=== PATIENT | female | born 1940 | race Caucasian/White ===

== ENCOUNTER 2017-06-12 06:01 | Inpatient (IN) | payer OTHER ==
--- NOTE | 2017-05-20 17:02 | History and Physical ---
History & Physical Date May 20, 2017. Chief Complaint left knee pain History of Present Illness Terri is a pleasant 77-year-old female who presents for preoperative evaluation prior to a Left knee replacement. Patient states that they have been having pain in this knee for many years now, which has gradually worsened, it has now gotten to the point it is affecting her daily activities including walking, standing, going up and down steps. Patient has tried and failed conservative measures including ambulating with a cane and PO NSAIDs with no relief. At this point in time, patient has failed conservative measures and would like to proceed with a left knee replacement. Past Medical/Surgical History Medical Problems: (1) Coronary artery disease (2) Salmonella Surgical Problems: (1) Stented coronary artery Allergies Coded Allergies: No Known Allergies (Unverified , 04/01/14) Home Medications Scheduled Aspirin (Aspir-Low), 81 MG PO QAM Atorvastatin (Atorvastatin Calcium), 40 MG PO DAILY Calcium Carbonate-Vitamin D (Calcium + D), 1 TAB PO DAILY Cyanocobalamin (Vitamin B12 500MCG), 500 MCG PO DAILY Folic Acid (Folvite), 1 MG PO DAILY Gabapentin (Neurontin), 600 MG PO HS Isosorbide Mononitrate (Isosorbide Mononitrate ER), 30 MG PO QAM Levothyroxine Sodium (Bulk) (L-Thyroxine Sodium), 75 MG PO DAILY Losartan Potassium (Cozaar), 50 MG PO DAILY Nitroglycerin (Nitrostat), 0.4 MG UT PRN Pantoprazole (Protonix), 40 MG PO DAILY Propranolol La (Inderal La), 60 MG PO QAM Venlafaxine Hcl (Venlafaxine Extended Rel), 75 MG PO DAILY [Ferrous Gluconate], 10 GM PO DAILY Physical Examination Skin: warm/dry, no rash Eyes: normal inspection, EOMI, sclerae normal ENT: normal ENT inspection, pharynx normal Head: normocephalic, atraumatic Neck: supple, no adenopathy, trachea midline Respiratory/Chest: lungs clear, normal breath sounds, no respiratory distress Cardiovascular: regular rate, rhythm, no edema, no murmur Addiitonal Comments: Left Knee Exam Physical Exam Exam Findings Details Knee ROM L * Active ROM - Flexion: 100 degrees, Extension: 5 degrees, Factors: pain. Passive ROM - Factors: pain. Knee ROM R * Active ROM - Flexion: 115 degrees, Extension: 0 degrees, Factors: normal, Description: active pain free range of motion. Passive ROM - Factors: normal, Description: passive pain free range of motion. Strength LE Normal Strength Description - Normal lower extremity: Bilateral. Knee * Inspection - Gait: normal. Alignment - Right: varus, Clinical, Left: varus. Ecchymosis - Right: none, Left: none. Effusion - Right: negative, Left: negative. Skin - Left: surgical scars. Swelling - Right: none, Left: mild. Flexibility - Right: normal, Left: normal. Maximum tenderness - Right: diffuse, Left: non-tender. Patella exam - Crepitation - Right: negative, Left: negative. Patella position - Right: neutral, Left: neutral. Tilt - Right: normal, Left: normal. Knee Normal Inspection - Atrophy - Right: Absent, Left: Absent. Skin - Right: Normal. Patella exam - Apprehension - Right: Negative, Left: Negative. Valgus stress - Right: Negative, Left: Negative. Varus stress - Right: Negative, Left: Negative. Extensor lag - Right: Normal, Left: Normal. Neurovascular LE Normal Neurovascular examination including reflexes, sensation , and pulses is within normal limits. Left Knee X-Rays: Xrays reviewed of the left knee showing findings consistent with degenerative joint disease including joint space narrowing, subchondral sclerosis and peripheral osteophyte formation. no acute bony pathology, overall varus alignment. Impression: degenerative joint disease of the left knee with no acute bony pathology noted. Diagnosis Left Knee DJD -Further care discussed with patient and at this point in time has failed conservative measures and would like to proceed with a left total knee replacement. Plan on discharge will be home with home health physical therapy. DVT prophalaxis with TEDs, SCDs and will also place on aspirin 81 mg p.o. b.i.d. for a month postop. Patient will have follow up appointment in our office two weeks post op for staple/suture removal and re-evaluation. Patient otherwise has no other questions or concerns.
[2017-05-21 14:39] VITALS: BMI 24.0
--- NOTE | 2017-05-21 15:13 | PAT Medication Instructions ---
Service Date May 21, 2017. Current Home Medication List Acetaminophen (Tylenol), 1,000 MG PO PRN Aspirin (Aspirin Ec), 81 MG PO HS Atorvastatin (Lipitor), 40 MG PO QPM Bismuth Subsalicylate (Kaopectate Extra Strength), 15 ML PO PRN Gabapentin (Neurontin), 600 MG PO HS Levothyroxine Sodium (Levothyroxine Sodium), 1 TAB PO QAM Nitrofurantoin Macrocrystals (Macrodantin), 100 MG PO BID Nitroglycerin (Nitrostat), 0.4 MG UT PRN Pantoprazole (Protonix), 40 MG PO BID Venlafaxine Hcl (Venlafaxine Extended Rel), 75 MG PO QAM Medication Instructions For Your Scheduled Surgery - Continue as directed: Nitroglycerin (Nitrostat), 0.4 MG UT PRN - Hold the following medications the morning of surgery: Bismuth Subsalicylate (Kaopectate Extra Strength), 15 ML PO PRN - Take the following medications the morning of surgery with a sip of water OTHERWISE NOTHING TO EAT OR DRINK AFTER MIDNIGHT: Acetaminophen (Tylenol), 1,000 MG PO PRN Pantoprazole (Protonix), 40 MG PO BID Venlafaxine Hcl (Venlafaxine Extended Rel), 75 MG PO QAM Levothyroxine Sodium (Levothyroxine Sodium), 1 TAB PO QAM Nitrofurantoin Macrocrystals (Macrodantin), 100 MG PO BID - Take the following medications as scheduled the night before surgery: Aspirin (Aspirin Ec), 81 MG PO HS Atorvastatin (Lipitor), 40 MG PO QPM Gabapentin (Neurontin), 600 MG PO HS Acetaminophen (Tylenol), 1,000 MG PO PRN Pantoprazole (Protonix), 40 MG PO BID Nitrofurantoin Macrocrystals (Macrodantin), 100 MG PO BID If you have any questions please call us at [phone] or [phone] or [phone]
--- NOTE | 2017-05-21 15:53 | DIAGNOSTIC IMAGING REPORT ---
TWO VIEW CHEST CLINICAL HISTORY: Preoperative examination. FINDINGS: PA and lateral chest radiographs are obtained No prior studies are available for comparison at the time of dictation. The cardiomediastinal silhouette is unremarkable. A coronary artery stent is noted. There is a large hiatal hernia. The lungs and pleural spaces are clear. There is no pneumothorax. The skeletal structures are osteopenic. The bony thorax appears intact. IMPRESSION: 1. No active disease in the chest. 2. Large hiatal hernia. Electronically signed by: Andrez Niño M.D. 05/21/2017 3:52 PM Dictated Date/Time: 05/21/2017 3:51 PM
[2017-05-21 15:54] LABS: BASO % 0.5 %; BASO ABS # 0.02 K/uL (0-0.2); COMPLETE YES; EOS % 1.1 %; HEMATOCRIT 42.2 % (37-47); IG% 0.3 %; LYMPH % 31.3 %; LYMPH ABS # 1.16 K/uL (1.2-3.4); MEAN CELL VOLUME 98.1 fL (80-100); MEAN CORPUSCULAR HEMOGLOBIN 31.6 pg (25-34); MEAN CORPUSCULAR HGB CONC 32.2 g/dl (32-36); MEAN PLATELET VOLUME 8.4 fL (7.4-10.4); MONO % 6.5 %; NEUT % 60.3 %; PLATELET COUNT 144 K/uL (130-400); WHITE BLOOD COUNT 3.71 K/uL (4.8-10.8)
[2017-05-21 15:57] LABS: URINE APPEARANCE CLEAR (CLEAR); URINE BILIRUBIN NEG (NEG); URINE COLOR DK YELLOW; URINE EPITHELIAL CELL AUTO 20-30 /lpf (0-5); URINE NITRITE NEG (NEG); URINE SPECIFIC GRAVITY 1.024 (1.000-1.030); UROBILINOGEN NEG (NEG); ZZUR CULT IF INDIC CLEAN CATCH NO
[2017-05-21 15:58] LABS: MANUAL MICROSCOPIC REQUIRED? NO; REVIEW REQ? NO
[2017-05-21 16:05] LABS: BUN/CREATININE RATIO 17.9 (10-20); CALCIUM 8.7 mg/dl (8.5-10.1); CREATININE 0.72 mg/dl (0.60-1.20); PROTHROMBIN TIME (PATIENT) 10.5 SECONDS (9.0-12.0)
[2017-05-22 06:15] LABS: ESTIMATED AVERAGE GLUCOSE 111 mg/dl; HA1C FLAG Normal (Normal)
[~2017-06-12] VITALS: Ht 162.6 cm; Wt 64.9 kg
[2017-06-12] VITALS (10 sets, daily range): BP systolic 80–143; BP diastolic 44–80; PULSE 61–82; TEMP 36.4–36.7; O2SAT 94–99; Ht 162.6 cm; Wt 64.9 kg
[~2017-06-12 06:01] MED LIST: ACET-1256 PO; ACETAMINOPHEN 500 MG TAB PO SCH; ASPI81TA28 PO; ATOR-24 PO; CEFAZOLIN 2000 MG/60 ML D5W 60 ML IV SCH; CeleBREX 200 MG CAP PO SCH; DEXAMETHASONE 4 MG TAB PO SCH; FAMOTIDINE 20 MG TAB PO SCH; GABA600T PO; GABAPENTIN 300 MG CAP PO SCH; LACTATED RINGER'S 1000ML 1,000 ML IV SCH; LACTATED RINGER'S 1000ML 500 ML IV ONE; LACTATED RINGER'S 1000ML IV SCH; LEVO50TA6 PO; METOCLOPRAMIDE HCL 10 MG TAB PO SCH; NITR0.4S UT; NITR1CAP32 PO; PANT1TAB48 PO; ROPIVACAINE 5MG/ML 30 ML 150 MG, BUPIVACAINE/EPINEPHR 0.5% MPF 30 ML, KETOROLAC TROMETH... INFIL SCH; VENL75CA73 PO; [UNRECOGNIZED DRUG - CODE] PO
[2017-06-12] MEDS ORDERED: BUPIVACAINE 0.5 % 5 MG/1 ML PF 10ML VIAL ONE (06:29)
[2017-06-12] MEDS ORDERED: FENTANYL CITRATE INJ 50 MCG/1 ML 2 ML VIAL ONE (06:44)
[2017-06-12] MEDS ORDERED: MIDAZOLAM HCL 1 MG/ML 2ML VIAL ONE (06:44)
[2017-06-12] MEDS ORDERED: ORTHO JOINT ANESTHETIC ONE (06:54)
--- NOTE | 2017-06-12 06:54 | History & Physical Bridge Note ---
H&P Re-Evaluation Bridge Note: I have examined the patient, reviewed the History & Physical and in the interval since the performance of the History & Physical I have noted the following changes of clinical significance: No changes noted
[2017-06-12] MEDS ORDERED: BACITRACIN 50000 UNIT VIAL ONE (06:55)
[2017-06-12] MEDS ORDERED: POVIDONE-IODINE OP SOLN 30 ML BTL ONE (06:55)
[2017-06-12] MEDS ORDERED: FENTANYL CITRATE INJ 50 MCG/1 ML 2 ML VIAL IV PRN (07:15)
[2017-06-12] MEDS ORDERED: EpHEDrine SULFATE INJ 50 MG/ML AMP IV PRN (07:15)
[2017-06-12] MEDS ORDERED: ONDANSETRON INJ 2 MG/ML 2 ML VIAL IV PRN ×2 (07:15→10:00)
[2017-06-12] MEDS ORDERED: ATROPINE SULFATE 0.1 MG/ML 5ML SYR IV PRN (07:15)
[2017-06-12] MEDS ORDERED: PROPOFOL IV EMULSION 10 MG/ML 20 ML VIAL IV ONE (08:46)
[2017-06-12] MEDS ORDERED: LIDOCAINE HCL 2% 2 ML VIAL (20MG/ML) ONE (08:46)
--- NOTE | 2017-06-12 09:23 | [facility] Operative Report ---
Operative Report Operative Date Jun 12, 2017. Pre-Operative Diagnosis Left knee degenerative joint disease Post-Operative Diagnosis Left knee degenerative joint disease Procedure(s) Performed Left total knee arthroplasty using [employer] journey to patient-matched total knee arthroplasty size 3 femur 3 tibia 12 poly-[address] Garner Inside Polisher Surgeon(s) Hammad Workman PA-C Estimated Blood Loss 5cc Findings Severe end-stage DJD left knee with Keith cyst Specimens A: Left knee bone and tissue Complication(s) None Disposition Recovery Room / PACU Indications Severe end-stage TriCor Meldrum joint disease varus alignment ligament instability popliteal cyst and for total knee arthroplasty excision of popliteal cyst correction of malalignment Description of Procedure After proper prepping and draping of the left lower extremity anterior midline incision was made over the region of the extensor extensor mechanism after meticulous hemostasis was obtained and maintained in subcutaneous tissues a medial parapatellar incision was made The patella was subluxed lateralward the medial lateral gutter were cleaned from any hypertrophic synovitis and scar tissue of the distal femoral block was placed and the distal femoral osteotomy cut was made subsequently the chamfers anterior and posterior osteotomy cuts were made utilizing the 4-in-1 block the tibia was subsequently subluxed anteriorward medial and ateral meniscal remnants were excised in their entirety remnants of the anterior and posterior cruciate ligaments were excised in their entirety excellent exposure of the proximal tibia was obtained the tibial osteotomy guide was placed on the proximal tibial osteotomy cut was made once again the knee was irrigated with copious amounts of sterile saline solution the patella was subsequently everted lateralward thickened scar tissue around the patella was removed the patella was subsequently cut utilizing a freehand technique and was drilled prepared for final preparation and placement of patella socially flexion-extension gaps were checked and the equal and symmetric trials were placed to the appropriate femoral and tibial trials with poly-spacer being placed for equal flexion and extension gaps and full range of motion including extension to 0 and flexion to 140 the trial components after having been taken to recovery range of motion was subsequently removed meticulous hemostasis was obtained and maintained subsequently a knee block injection of joint cocktail including ropivacaine 0.5% 150 mg. Bupivacaine 0.5 % epinephrine 1-200,030 mL's toradol 30 mg dexamethasone 4 mg ketamine 10 mg clonidine 100 micrograms normal saline solution 30 mg was infiltrated into the soft tissues of the posterior knee medial lateral gutters and periosteal synovium special attention was paid to protect neurovascular structures at all times subsequently trial components having been removed the knee was irrigated with sterile saline solution. debris was removed the proximal tibia was subsequently prepared and was made ready for the placement of the tibial component tibial component was also cemented and tamped into position the femoral component was subsequently placed and cemented in the position the patellar component was subsequently cemented in position because hemostasis once again obtained and maintained wound having been thoroughly irrigated with debridement and debridement lavage was performed as well as a medial parapatellar incision closed with #1 Vicryl in interrupted fashion subcutaneous was closed with #2 Vicryl skin was closed with skin clips. PA-C was necessary for prepping and drapping as well as wound closure of deep fascia Sub cutaneous tissue and skin and was necessary for the case. A sterile compressive dressing was placed patient was taken to recovery in stable condition of report dictated by Pascual I attest to the content of the Intraoperative Record and any orders documented therein. Any exceptions are noted below. I attest to the content of the Intraoperative Record and any orders documented therein. Any exceptions are noted below.
[2017-06-12] MEDS ORDERED: ALUMINUM/MAGNESIUM/SIMETH (MAALOX MAX) 30 ML UDC PO PRN (10:00)
[2017-06-12] MEDS ORDERED: MoRPHine SULFATE 4 MG/ML 1 ML CARP\\VIAL IV PRN (10:00)
[2017-06-12] MEDS ORDERED: BISACODYL 10 MG SUPP PR PRN (10:00)
[2017-06-12] MEDS ORDERED: NITROGLYCERIN 0.4 MG SL PER TAB CHARGE UT SCH (10:00)
[2017-06-12] MEDS ORDERED: MAGNESIUM HYDROXIDE SUSP 30 ML UDC PO PRN (10:00)
[2017-06-12] MEDS ORDERED: MoRPHine SULFATE 2 MG/ML CARP IV PRN (10:00)
--- NOTE | 2017-06-12 10:20 | Anesthesiology Progress Note ---
Anesthesia Post Op Note Date & Time Jun 12, 2017 at 10:20 Vital Signs Pain Intensity: 0 Vital Signs Past 12 Hours Date Time Temp Pulse Resp B/P (MAP) Pulse Ox O2 Delivery O2 Flow Rate FiO2 06/12/17 10:10 64 16 119/68 99 Nasal Cannula 2 06/12/17 10:00 36.4 63 18 128/60 95 Nasal Cannula 2 06/12/17 09:56 36.4 70 18 133/67 96 Room Air 06/12/17 06:37 36.4 82 20 143/68 97 Room Air Notes Mental Status: alert / awake / arousable, participated in evaluation Pt Amnestic to Procedure: Yes Nausea / Vomiting: adequately controlled Pain: adequately controlled Airway Patency, RR, SpO2: stable & adequate BP & HR: stable & adequate Hydration State: stable & adequate Neuraxial Anesthesia: was administered, sensory block is resolving Anesthetic Complications: no major complications apparent
--- NOTE | 2017-06-12 10:49 | DIAGNOSTIC IMAGING REPORT ---
LEFT KNEE 1 OR 2 VIEWS ROUTINE HISTORY: 77 years Female status post left knee arthroplasty. Degenerative joint disease. COMPARISON: None available TECHNIQUE: Portable AP and crosstable lateral views of the left knee FINDINGS: There has been interval total knee arthroplasty with patellar resurfacing. Alignment is satisfactory without evidence of periprosthetic fracture. Midline skin henry are seen with expected large degree of postsurgical swelling and deep tissue air about the knee. IMPRESSION: Status post total left knee arthroplasty and patellar resurfacing with satisfactory alignment. The above report was generated using voice recognition software. It may contain grammatical, syntax or spelling errors. Electronically signed by: Venkata Orellana M.D. 06/12/2017 10:47 AM Dictated Date/Time: 06/12/2017 10:46 AM
[2017-06-12] MEDS ORDERED: D5W AND 1/2NSS + 20MEQ KCL 1,000 ML IV SCH (12:00)
[2017-06-12] MEDS: ACETAMINOPHEN 500 MG TAB PO SCH ×2 (13:54→22:20)
[2017-06-12] MEDS: CEFAZOLIN IV 1,000 MG in DEXTROSE 5% 50ML 50 ML IV SCH ×2 (16:18→23:46)
[2017-06-12] MEDS: FERROUS GLUCONATE 324 MG TAB PO SCH (18:53)
[2017-06-12] MEDS: TRAMADOL HCL 50 MG TAB PO PRN ×2 (18:54→23:47)
[2017-06-12] MEDS ORDERED: NURSING VERBAL MED ORDER ONE (19:45)
[2017-06-12] MEDS ORDERED: SODIUM CHLORIDE 0.9% 250ML 250 ML IV ONE (20:00)
[2017-06-12 20:26] LABS: COMPLETE YES; HEMATOCRIT 32.4 % (37-47); IG% 0.3 %; LYMPH ABS # 0.28 K/uL (1.2-3.4); MEAN CELL VOLUME 98.2 fL (80-100); MEAN CORPUSCULAR HEMOGLOBIN 32.1 pg (25-34); MEAN CORPUSCULAR HGB CONC 32.7 g/dl (32-36); MEAN PLATELET VOLUME 8.4 fL (7.4-10.4); MONO % 3.3 %; NEUT % 92.4 %; PLATELET COUNT 120 K/uL (130-400); WHITE BLOOD COUNT 7.07 K/uL (4.8-10.8)
[2017-06-12] MEDS: OXYCODONE HCL IR 5 MG TAB (IMMEDIATE RELEASE) PO PRN (20:26)
[2017-06-12] MEDS: GABAPENTIN 600 MG TAB PO SCH (20:30)
[2017-06-12] MEDS: ATORVASTATIN 40 MG TAB PO SCH (20:31)
[2017-06-12] MEDS: PANTOprazole SOD 40 MG TAB PO SCH (20:32)
[2017-06-12] MEDS ORDERED: ASPIRIN 81 MG ECTAB PO SCH (21:00)
[2017-06-12] MEDS ORDERED: DOCUSATE SODIUM 100 MG CAP PO SCH (21:00)
[2017-06-12] MEDS ORDERED: SENNA 8.6 MG TAB PO SCH (21:00)
--- NOTE | 2017-06-12 21:06 | Medical Consult ---
Consultation Date of Consultation: Jun 12, 2017. Attending Physician: Willis Garner D.O. Reason for Consultation: Patient seen at request of Dr. Cabrera for evaluation of hypotension. Patient PCP is Dr. Rojas. History of Present Illness Patient underwent left knee surgery for OA this morning. Some postop left knee discomfort. No chest pain no shortness of breath. Appetite okay. Around 7 PM, SBP noted to be 80s. Patient given IVF bolus. SBP currently 100s. Past Medical/Surgical History CAD status post stenting Hyperlipidemia Autoimmune hemolytic anemia GERD Hypothyroidism Restless leg syndrome Past tobacco abuse Hysterectomy Cholecystectomy Left knee surgery Social History Smoking Status: Former Smoker Alcohol Use: none Marital Status: Housing Status: lives with family Occupation Status: other (businesswoman) Allergies Coded Allergies: Adhesives (Unverified Allergy, Unknown, SOME TAPE RASH PAPER [place], 06/12/17) Codeine (Unverified Allergy, Unknown, UNKNOWN, 06/12/17) Home Medications Aspirin 81 mg at bedtime Tylenol when necessary Lipitor Bismuth when necessary Neurontin Levothyroxine Nitroglycerin when necessary Protonix Effexor Current Inpatient Medications Current Inpatient Medications Medications (Trade) Dose Ordered Sig/Janet Route Start Time Stop Time Status Last Admin Dose Admin Lactated Ringer's 1,000 ml @ 15 mls/hr Q24H IV 06/12/17 06:00 06/13/17 05:59 06/12/17 07:14 15 MLS/HR Lactated Ringer's 1,000 ml @ 60 mls/hr [id number] IV 06/12/17 06:00 06/12/17 22:39 Atorvastatin Calcium (Lipitor Tab) 40 mg QPM PO 06/12/17 21:00 07/12/17 20:59 06/12/17 20:31 40 MG Gabapentin (Neurontin Tab) 600 mg HS PO 06/12/17 21:00 07/12/17 20:59 06/12/17 20:30 600 MG Levothyroxine Sodium (Synthroid Tab) 50 mcg DAILYBB PO 06/13/17 06:00 07/13/17 05:59 Nitroglycerin (Nitrostat Tab) 0.4 mg PRN UT 06/12/17 10:00 07/12/17 09:59 Pantoprazole Sodium (Protonix Tab) 40 mg BID PO 06/12/17 21:00 8/18/17 20:59 06/12/17 20:32 40 MG Venlafaxine HCl (effeXOR EXTENDED REL CAP) 75 mg QAM PO 06/13/17 09:00 07/13/17 08:59 Potassium Chloride/Dextrose/ Sod Cl 1,000 ml @ 125 mls/hr Q8H IV 06/12/17 12:00 06/13/17 11:59 06/12/17 12:36 100 MLS/HR Cefazolin Sodium 1000 mg/Dextrose 55 ml @ 100 mls/hr Q8H IV 06/12/17 16:00 06/13/17 00:32 06/12/17 16:18 100 MLS/HR Celecoxib (CeleBREX CAP) 200 mg DAILY PO 06/13/17 09:00 07/13/17 08:59 Oxycodone HCl (Roxicodone Immediate Rel Tab) 1 TABLET FOR PAIN RATING... Q4H PRN PO 06/12/17 10:00 06/26/17 09:59 06/12/17 20:26 6 MG Acetaminophen (Tylenol Tab) 1,000 mg Q8H PO 06/12/17 14:00 07/12/17 13:59 06/12/17 13:54 1,000 MG Magnesium Hydroxide (Milk Of Magnesia Susp) 30 ml Q6H PRN PO 06/12/17 10:00 07/12/17 09:59 Bisacodyl (Dulcolax Supp) 10 mg DAILY PRN NH 06/12/17 10:00 07/12/17 09:59 Senna (Senokot Tab) 17.2 mg HS PO 06/12/17 21:00 07/12/17 20:59 06/12/17 20:30 17.2 MG Docusate Sodium (coLACE CAP) 100 mg BID PO 06/12/17 21:00 07/12/17 20:59 06/12/17 20:31 100 MG Al Hydrox/Mg Hydrox/Simethicone (Maalox Max Susp) 15 ml Q4H PRN PO 06/12/17 10:00 07/12/17 09:59 Multivitamins (Multivitamin Tab) 1 tab QAM PO 06/13/17 09:00 07/13/17 08:59 Ondansetron HCl (Zofran Inj) 4 mg Q6H PRN IV 06/12/17 10:00 07/12/17 09:59 Ferrous Gluconate (Ferrous Gluconate Tab) 324 mg TIDM PO 06/12/17 17:45 07/12/17 17:44 06/12/17 18:53 324 MG Tramadol HCl (Ultram Tab) 1 tablet for pain rating... Q4H PRN PO 06/12/17 10:00 07/12/17 09:59 06/12/17 18:54 50 MG Morphine Sulfate (MoRPHine SULFATE INJ) 2 mg Q4HWA PRN IV 06/12/17 10:00 06/26/17 09:59 Morphine Sulfate (MoRPHine SULFATE INJ) 4 mg Q4HWA PRN IV 06/12/17 10:00 06/26/17 09:59 Review of Systems As per history of present illness all other ROS negative Physical Exam Date Time Temp Pulse Resp B/P (MAP) Pulse Ox O2 Delivery O2 Flow Rate FiO2 06/12/17 21:02 67 101/63 (76) 06/12/17 19:25 36.7 74 16 84/50 (61) 94 Room Air 84/48 (60) 06/12/17 15:35 36.7 65 16 92/59 (70) 98 Nasal Cannula 2.0 06/12/17 15:20 Nasal Cannula 2.0 06/12/17 14:00 36.6 65 19 103/68 (80) 98 Room Air 06/12/17 13:00 64 19 109/71 (84) 99 Room Air 06/12/17 12:00 62 18 117/78 (91) 98 Nasal Cannula 2.0 06/12/17 11:30 36.4 61 19 122/80 (94) 94 Nasal Cannula 2.0 06/12/17 11:00 36.4 61 16 126/79 (95) 94 Nasal Cannula 2.0 06/12/17 11:00 Nasal Cannula 2.0 06/12/17 10:50 59 14 128/65 100 Nasal Cannula 2 06/12/17 10:40 61 14 125/69 98 Nasal Cannula 2 06/12/17 10:30 36.5 65 16 125/53 98 Nasal Cannula 2 06/12/17 10:20 66 16 131/70 99 Nasal Cannula 2 06/12/17 10:10 64 16 119/68 99 Nasal Cannula 2 06/12/17 10:00 36.4 63 18 128/60 95 Nasal Cannula 2 06/12/17 09:56 36.4 70 18 133/67 96 Room Air 06/12/17 08:10 Nasal Cannula 2.0 06/12/17 06:37 36.4 82 20 143/68 97 Room Air General Appearance: + pertinent finding (comfortable) Head: normocephalic Eyes: + pertinent finding (pale palpebral conjunctivae, dry buccal mucosa) Neck: supple Respiratory/Chest: lungs clear Cardiovascular: regular rate, rhythm Abdomen/GI: soft Extremities/Musculoskelatal: + pertinent finding (immobilization device on the left lower extremity) Neurologic/Psych: alert Skin: + pallor Laboratory Results Last 24 Hours Test 06/12/17 20:07 06/12/17 20:43 White Blood Count 7.07 K/uL Red Blood Count 3.30 M/uL Hemoglobin 10.6 g/dL Hematocrit 32.4 % Mean Corpuscular Volume 98.2 fL Mean Corpuscular Hemoglobin 32.1 pg Mean Corpuscular Hemoglobin Concent 32.7 g/dl Platelet Count 120 K/uL Mean Platelet Volume 8.4 fL Neutrophils (%) (Auto) 92.4 % Lymphocytes (%) (Auto) 4.0 % Monocytes (%) (Auto) 3.3 % Eosinophils (%) (Auto) 0.0 % Basophils (%) (Auto) 0.0 % Neutrophils # (Auto) 6.54 K/uL Lymphocytes # (Auto) 0.28 K/uL Monocytes # (Auto) 0.23 K/uL Eosinophils # (Auto) 0.00 K/uL Basophils # (Auto) 0.00 K/uL RDW Standard Deviation 48.4 fL RDW Coefficient of Variation 13.6 % Immature Granulocyte % (Auto) 0.3 % Immature Granulocyte # (Auto) 0.02 K/uL Activated Partial Thromboplast Time 24.7 SECONDS Partial Thromboplastin Ratio 1.0 Assessment & Plan Assessment : Postop hypotension Multifactorial: Perioperative meds, mild clinical dehydration, postop blood loss Resolved after initial fluid bolus History CAD status post stenting History autoimmune hemolytic anemia Postop thrombocytopenia Diarrhea rule out C. difficile (recent outpatient antibiotic intake for UTI) Recommendations : IVF ff HH, Transfuse packed RBC if hemoglobin less than 8 with history of CAD Follow platelets, recommend decrease ASA from.postop BID dosing intended for DVT prophylaxis to home once daily dosing until hemoglobin and platelet counts stable Stool C. difficile , hold laxatives for now DVT prophylaxis, Agree with postop SCD orders interim Thank you very much for this consultation. Dr. Ball will follow patient's progress.
[2017-06-12 21:13] LABS: BUN/CREATININE RATIO 18.5 (10-20); CALCIUM 7.9 mg/dl (8.5-10.1); CREATININE 0.84 mg/dl (0.60-1.20); MAGNESIUM 1.7 mg/dl (1.8-2.4); POTASSIUM 4.2 mmol/L (3.5-5.1)
[2017-06-12 21:24] LABS: THYROID STIMULATING HORMONE 0.596 uIu/ml (0.300-4.500)
[2017-06-12] MEDS ORDERED: SODIUM CHLORIDE 0.45% 1000ML 1,000 ML IV ONE (21:30)
[2017-06-12] MEDS ORDERED: MAGNESIUM SULFATE 1GM / D5W 1 GM in PREMIXED IN D5W 100 ML IV ONE (21:30)
[2017-06-13] VITALS (8 sets, daily range): BP systolic 81–107; BP diastolic 45–68; PULSE 60–75; TEMP 36.4–36.7; O2SAT 95–97
[2017-06-13 00:50] LABS: HEMATOCRIT 30.1 % (37-47)
[2017-06-13] MEDS ORDERED: SODIUM CHLORIDE 0.9% 500ML 500 ML IV ONE (04:00)
[2017-06-13] MEDS: ACETAMINOPHEN 500 MG TAB PO SCH ×3 (05:37→21:42)
[2017-06-13] MEDS: LEVOTHYROXINE 50 MCG TAB PO SCH (05:37)
[2017-06-13 06:58] LABS: BASO % 0.2 %; BASO ABS # 0.01 K/uL (0-0.2); COMPLETE YES; EOS % 0.2 %; HEMATOCRIT 27.6 % (37-47); IG% 0.2 %; LYMPH % 13.1 %; LYMPH ABS # 0.78 K/uL (1.2-3.4); MEAN CELL VOLUME 98.6 fL (80-100); MEAN CORPUSCULAR HEMOGLOBIN 32.5 pg (25-34); MEAN PLATELET VOLUME 8.5 fL (7.4-10.4); MONO % 6.5 %; NEUT % 79.8 %; PLATELET COUNT 110 K/uL (130-400); WHITE BLOOD COUNT 5.96 K/uL (4.8-10.8)
[2017-06-13 07:25] LABS: BUN/CREATININE RATIO 22.9 (10-20); CALCIUM 7.9 mg/dl (8.5-10.1); CREATININE 0.59 mg/dl (0.60-1.20); MAGNESIUM 2.2 mg/dl (1.8-2.4)
--- NOTE | 2017-06-13 07:56 | Anesthesiology Progress Note ---
Anesthesia Post Op Note Date & Time Jun 13, 2017 at 07:56 Vital Signs Pain Intensity: 8.0 Vital Signs Past 12 Hours Date Time Temp Pulse Resp B/P (MAP) Pulse Ox O2 Delivery O2 Flow Rate FiO2 06/13/17 05:40 74 99/59 (72) 74 81/51 (61) 06/13/17 03:46 36.4 60 16 82/45 (57) 95 Room Air 81/45 (57) 06/12/17 23:38 Room Air 06/12/17 23:15 36.7 65 16 86/54 (65) 95 Room Air 80/44 (56) 06/12/17 21:02 67 101/63 (76) Notes Mental Status: alert / awake / arousable, participated in evaluation Anesthetic Complications: no major complications apparent
[2017-06-13] MEDS ORDERED: MoRPHine SULFATE 4 MG/ML 1 ML CARP\\VIAL IV PRN (08:00)
[2017-06-13] MEDS ORDERED: MoRPHine SULFATE 2 MG/ML CARP IV PRN (08:00)
--- NOTE | 2017-06-13 08:31 | Orthopedic Progress Note ---
Orthopedic Progress Note Date of Service Jun 13, 2017. Subjective Post OP Day: 1 Reports: feeling well, Denies: chest pain, SOB, nausea / vomiting Additional Notes: Pt states that she was having a fair amount of drainage last night. HV had to be taken off suction etc. Not draining as much now. Was seen by Med Service last night for low BP as well and treated accordingly. No new complaints this AM. Objective calves soft nontender, N/V intact, dressing C/D/I, A&O x3, toes mobile, hemovac drainage (150ml latest shift; 1015ml yesterday) Date Time Temp Pulse Resp B/P (MAP) Pulse Ox O2 Delivery O2 Flow Rate FiO2 06/13/17 08:15 96 Room Air 06/13/17 07:58 36.4 63 17 96/60 (72) 96 Room Air 06/13/17 05:40 74 99/59 (72) 74 81/51 (61) 06/13/17 03:46 36.4 60 16 82/45 (57) 95 Room Air 81/45 (57) 06/12/17 23:38 Room Air 06/12/17 23:15 36.7 65 16 86/54 (65) 95 Room Air 80/44 (56) 06/12/17 21:02 67 101/63 (76) 06/12/17 19:25 36.7 74 16 84/50 (61) 94 Room Air 84/48 (60) 06/12/17 15:35 36.7 65 16 92/59 (70) 98 Nasal Cannula 2.0 06/12/17 15:20 Nasal Cannula 2.0 06/12/17 14:00 36.6 65 19 103/68 (80) 98 Room Air 06/12/17 13:00 64 19 109/71 (84) 99 Room Air 06/12/17 12:00 62 18 117/78 (91) 98 Nasal Cannula 2.0 06/12/17 11:30 36.4 61 19 122/80 (94) 94 Nasal Cannula 2.0 06/12/17 11:00 36.4 61 16 126/79 (95) 94 Nasal Cannula 2.0 06/12/17 11:00 Nasal Cannula 2.0 06/12/17 10:50 59 14 128/65 100 Nasal Cannula 2 06/12/17 10:40 61 14 125/69 98 Nasal Cannula 2 06/12/17 10:30 36.5 65 16 125/53 98 Nasal Cannula 2 06/12/17 10:20 66 16 131/70 99 Nasal Cannula 2 06/12/17 10:10 64 16 119/68 99 Nasal Cannula 2 06/12/17 10:00 36.4 63 18 128/60 95 Nasal Cannula 2 06/12/17 09:56 36.4 70 18 133/67 96 Room Air Laboratory Results 24 Hours: Test 06/12/17 20:07 06/13/17 00:42 06/13/17 06:36 White Blood Count 7.07 K/uL 5.96 K/uL Red Blood Count 3.30 M/uL 2.80 M/uL Hemoglobin 10.6 g/dL 10.0 g/dL 9.1 g/dL Hematocrit 32.4 % 30.1 % 27.6 % Mean Corpuscular Volume 98.2 fL 98.6 fL Mean Corpuscular Hemoglobin 32.1 pg 32.5 pg Mean Corpuscular Hemoglobin Concent 32.7 g/dl 33.0 g/dl Platelet Count 120 K/uL 110 K/uL Mean Platelet Volume 8.4 fL 8.5 fL Neutrophils (%) (Auto) 92.4 % 79.8 % Lymphocytes (%) (Auto) 4.0 % 13.1 % Monocytes (%) (Auto) 3.3 % 6.5 % Eosinophils (%) (Auto) 0.0 % 0.2 % Basophils (%) (Auto) 0.0 % 0.2 % Neutrophils # (Auto) 6.54 K/uL 4.76 K/uL Lymphocytes # (Auto) 0.28 K/uL 0.78 K/uL Monocytes # (Auto) 0.23 K/uL 0.39 K/uL Eosinophils # (Auto) 0.00 K/uL 0.01 K/uL Basophils # (Auto) 0.00 K/uL 0.01 K/uL Assessment & Plan Assessment: POD 1 s/p Right TKA Post op Anemia secondary to blood loss from surgery Plan: Begin PT/OT Pt eager to get OOB - BP's remaining low but pt denies other sx's Planning for OPPT Inhouse Planning Pain Management: Celebrex, Ultram, Morphine, PO Tylenol, Oxy IR DVT Prophylaxis: TEDs, SCDs, ASA Discharge Planning Discharge Planning: home with oppt Pain Management: Celebrex, PO Tylenol, Oxy IR DVT Prophylaxis: TEDs, ASA Therapy: Physical Therapy
[2017-06-13] MEDS ORDERED: PANTOprazole SOD 40 MG TAB PO SCH (09:00)
[2017-06-13] MEDS: ASPIRIN 81 MG ECTAB PO SCH (10:33)
[2017-06-13] MEDS: FERROUS GLUCONATE 324 MG TAB PO SCH ×3 (10:33→18:46)
[2017-06-13] MEDS: PANTOprazole SOD 40 MG TAB PO SCH ×2 (10:34→20:21)
[2017-06-13] MEDS: VENLAFAXINE HCL XR 75 MG CAPXR PO SCH (10:34)
[2017-06-13] MEDS: CeleBREX 200 MG CAP PO SCH (10:34)
[2017-06-13] MEDS: MULTIVITAMIN TAB PO SCH (10:34)
[2017-06-13] MEDS: OXYCODONE HCL IR 5 MG TAB (IMMEDIATE RELEASE) PO PRN ×3 (13:31→21:43)
--- NOTE | 2017-06-13 18:53 | Discharge Instructions ---
Discharge Instructions Date of Service Jun 13, 2017. Admission Reason for Admission: Left Knee Degenerative Joint Disease Discharge Discharge Diagnosis / Problem: Left Total Knee Replacement Discharge Goals Goal(s): Decrease discomfort, Improve function, Increase independence Activity Recommendations Activity Limitations: as noted below Weightbearing Status: Left weightbearing (as tolerated) . Instructions / Follow-Up Instructions / Follow-Up ACTIVITY RECOMMENDATIONS: SELF CARE INSTRUCTIONS AFTER TOTAL KNEE REPLACEMENT A. You may need to continue a physical therapy program after discharge from the hospital. There are several options available to you. Your doctor will assist you in selecting the best one for you. 1. An out-patient facility 2 to 3 times a week for therapy or home therapy. 2. Continue working on all exercises taught to you in the hospital. Your goals should be to increase bending of your knee to 90 degrees and beyond and to fully straighten your knee. B. You may progress at your own pace from walking with a walker or crutches to a cane; then to no assistive devices. C. Make walking a part of your daily routine. Be up as much as comfortable with rest periods throughout the day. Rest with leg elevation is very important. Use the ice wrap frequently for the first 3-4 weeks. D. There are no restrictions on activities. You may ride in a car, shop, participate in digital editor and all social activities. E. Wear the long elastic stockings (ANGIE hose) 20 hours a day for 2 weeks after surgery. They can be removed several times a day for laundering and for a bath. F. You may shower, no tub baths until cleared by your doctor. SPECIAL CARE INSTRUCTIONS: VERY IMPORTANT TO READ AND REVIEW A. There are a few signs you need to watch for after you are home. Call [facility] if you notice any of the followin. Increased severe knee pain. Some pain is expected especially when you exercise. 2. Increased swelling in your leg or knee; pain or swelling of the calf muscle in either lower leg. 3. Any fluid drainage from the incision. 4. Shortness of breath or chest pain. B. Please call [facility] at if you have any concerns or questions about your operation or recovery. The doctor or his nurse will return your call promptly. C. You must take antibiotics before dental work, bladder, bowel or other surgery. Your doctor will provide you with a permanent care to carry describing this precaution. IMPORTANT: * REMEMBER TO TAKE ASPIRIN, 81 MG, TWICE DAILY FOR 4 WEEKS UNLESS OTHERWISE DIRECTED. THIS IS YOUR BLOOD THINNER. * HIGH RISK PATIENTS MAY BE PRESCRIBED A STRONGER BLOOD THINNER. THIS WILL BE PROVIDED AT DISCHARGE. * CALL IF INCREASED PAIN, REDNESS, DRAINAGE OR FEVER GREATER THAT 101. * WEAR ANGIE HOSE 20 HOURS PER DAY FOR 2 WEEKS. * YOU MAY HAVE A LARGE BAND-AID LIKE DRESSING (SILVERON). THIS WILL REMAIN ON YOUR INCISION FOR 7 DAYS, THEN CAN BE REMOVED. IF INCISION IS LEAKING THROUGH DRESSING, CALL THE OFFICE . FOLLOW UP VISIT: If appointment is not already scheduled: Please call [facility] to make a follow-up appointment for 2 weeks after your surgery at . Current Hospital Diet Patient's current hospital diet: Low Lactose Diet Discharge Diet Recommended Diet: Low Lactose Diet Procedures Procedures Performed: Left total knee arthroplasty using [employer] journey to patient-matched total knee arthroplasty size 3 femur 3 tibia 12 poly-29 oval patella Pending Studies Studies pending at discharge: no Laboratory Results Hemoglobin A1c Test 05/21/17 15:21 Range/Units Estimated Average Glucose 111 mg/dl Hemoglobin A1c 5.5 4.5-5.6 % Medical Emergencies . Who to Call and When: Medical Emergencies: If at any time you feel your situation is an emergency, please call 911 immediately. . Non-Emergent Contact Non-Emergency issues call your: Primary Care Provider, Surgeon . "Provider Documentation" section prepared by Kareem Rivers. . VTE Core Measure Inpt VTE Proph given/why not?: Other Anticoagulation (ASA 81mg po bid x 1 month), Natalie Moon, SCD's [place] Drug Monitoring Program Search Results: patient reviewed within database, no issues identified
[2017-06-13] MEDS: TRAMADOL HCL 50 MG TAB PO PRN (20:20)
[2017-06-13] MEDS: ATORVASTATIN 40 MG TAB PO SCH (20:21)
[2017-06-13] MEDS: GABAPENTIN 600 MG TAB PO SCH (20:21)
--- NOTE | 2017-06-13 20:36 | Progress Note ---
Subjective Date of Service: Jun 13, 2017. Subjective Pt evaluation today including: conversation w/ patient, physical exam, lab review, review of studies, review of inpatient medication list Saw/examined the patient in room 383 Doing well +pain at the site of surgery; improved with medications no fevers/chills, no nausea/vomiting/diarrhea Review of Systems Constitutional: No fever, No chills, No weakness Respiratory: No cough, No shortness of breath Cardiac: No chest pain, No edema, No palpitations Abdomen: No pain, No nausea, No vomiting, No diarrhea Musculoskeletal: + joint pain Female : No dysuria, No urinary frequency Heme: No abnormal bleeding/bruising Medications Current Inpatient Medications Medications (Trade) Dose Ordered Sig/Janet Route Start Time Stop Time Status Last Admin Dose Admin Atorvastatin Calcium (Lipitor Tab) 40 mg QPM PO 06/12/17 21:00 07/12/17 20:59 06/12/17 20:31 40 MG Gabapentin (Neurontin Tab) 600 mg HS PO 06/12/17 21:00 07/12/17 20:59 06/12/17 20:30 600 MG Levothyroxine Sodium (Synthroid Tab) 50 mcg DAILYBB PO 06/13/17 06:00 07/13/17 05:59 06/13/17 05:37 50 MCG Nitroglycerin (Nitrostat Tab) 0.4 mg PRN UT 06/12/17 10:00 07/12/17 09:59 Pantoprazole Sodium (Protonix Tab) 40 mg BID PO 06/12/17 21:00 07/12/17 20:59 06/13/17 10:34 40 MG Venlafaxine HCl (effeXOR EXTENDED REL CAP) 75 mg QAM PO 06/13/17 09:00 07/13/17 08:59 06/13/17 10:34 75 MG Celecoxib (CeleBREX CAP) 200 mg DAILY PO 06/13/17 09:00 07/13/17 08:59 06/13/17 10:34 200 MG Oxycodone HCl (Roxicodone Immediate Rel Tab) 1 TABLET FOR PAIN RATING... Q4H PRN PO 06/12/17 10:00 06/26/17 09:59 06/13/17 13:31 10 MG Acetaminophen (Tylenol Tab) 1,000 mg Q8H PO 06/12/17 14:00 07/12/17 13:59 06/13/17 13:30 1,000 MG Magnesium Hydroxide (Milk Of Magnesia Susp) 30 ml Q6H PRN PO 06/12/17 10:00 07/12/17 09:59 Bisacodyl (Dulcolax Supp) 10 mg DAILY PRN [place] 06/12/17 10:00 07/12/17 09:59 Al Hydrox/Mg Hydrox/Simethicone (Maalox Max Susp) 15 ml Q4H PRN PO 06/12/17 10:00 07/12/17 09:59 Multivitamins (Multivitamin Tab) 1 tab QAM PO 06/13/17 09:00 07/13/17 08:59 06/13/17 10:34 1 TAB Ondansetron HCl (Zofran Inj) 4 mg Q6H PRN IV 06/12/17 10:00 07/12/17 09:59 Ferrous Gluconate (Ferrous Gluconate Tab) 324 mg TIDM PO 06/12/17 17:45 07/12/17 17:44 06/13/17 12:29 324 MG Tramadol HCl (Ultram Tab) 1 tablet for pain rating... Q4H PRN PO 06/12/17 10:00 07/12/17 09:59 06/12/17 23:47 100 MG Aspirin (Ecotrin Tab) 81 mg QAM PO 06/13/17 09:00 07/13/17 08:59 06/13/17 10:33 81 MG Morphine Sulfate (MoRPHine SULFATE INJ) 2 mg Q4HWA PRN IV 06/13/17 08:00 06/26/17 09:59 Morphine Sulfate (MoRPHine SULFATE INJ) 4 mg Q4HWA PRN IV 06/13/17 08:00 06/26/17 09:59 Objective Vital Signs Date Time Temp Pulse Resp B/P (MAP) Pulse Ox O2 Delivery O2 Flow Rate FiO2 06/13/17 15:03 36.5 65 18 107/66 (80) 97 Room Air 107/66 (80) 91/56 (68) 06/13/17 13:25 70 18 106/67 (80) 75 100/58 (72) 75 93/57 (69) 06/13/17 11:51 36.7 69 17 106/68 (81) 96 7/20/17 08:15 96 Room Air 06/13/17 07:58 36.4 63 17 96/60 (72) 96 Room Air 06/13/17 07:30 Room Air 06/13/17 05:40 74 99/59 (72) 74 81/51 (61) 06/13/17 03:46 36.4 60 16 82/45 (57) 95 Room Air 81/45 (57) 06/12/17 23:38 Room Air 06/12/17 23:15 36.7 65 16 86/54 (65) 95 Room Air 80/44 (56) 06/12/17 21:02 67 101/63 (76) 06/12/17 19:25 36.7 74 16 84/50 (61) 94 Room Air 84/48 (60) Physical Exam General Appearance: no apparent distress Respiratory/Chest: chest non-tender, lungs clear, normal breath sounds, no respiratory distress, no accessory muscle use Cardiovascular: regular rate, rhythm, no edema, no gallop, no JVD, no murmur Abdomen: normal bowel sounds, non tender, soft Extremities: + pertinent finding (L knee is wrapped/bandaged) Neurologic/Psychiatric: no motor/sensory deficits, alert, normal mood/affect Laboratory Results Last 24 Hours Test 06/12/17 20:07 06/12/17 20:43 06/13/17 00:42 06/13/17 06:36 White Blood Count 7.07 K/uL 5.96 K/uL Red Blood Count 3.30 M/uL 2.80 M/uL Hemoglobin 10.6 g/dL 10.0 g/dL 9.1 g/dL Hematocrit 32.4 % 30.1 % 27.6 % Mean Corpuscular Volume 98.2 fL 98.6 fL Mean Corpuscular Hemoglobin 32.1 pg 32.5 pg Mean Corpuscular Hemoglobin Concent 32.7 g/dl 33.0 g/dl Platelet Count 120 K/uL 110 K/uL Mean Platelet Volume 8.4 fL 8.5 fL Neutrophils (%) (Auto) 92.4 % 79.8 % Lymphocytes (%) (Auto) 4.0 % 13.1 % Monocytes (%) (Auto) 3.3 % 6.5 % Eosinophils (%) (Auto) 0.0 % 0.2 % Basophils (%) (Auto) 0.0 % 0.2 % Neutrophils # (Auto) 6.54 K/uL 4.76 K/uL Lymphocytes # (Auto) 0.28 K/uL 0.78 K/uL Monocytes # (Auto) 0.23 K/uL 0.39 K/uL Eosinophils # (Auto) 0.00 K/uL 0.01 K/uL Basophils # (Auto) 0.00 K/uL 0.01 K/uL RDW Standard Deviation 48.4 fL 49.3 fL RDW Coefficient of Variation 13.6 % 13.8 % Immature Granulocyte % (Auto) 0.3 % 0.2 % Immature Granulocyte # (Auto) 0.02 K/uL 0.01 K/uL Activated Partial Thromboplast Time 24.7 SECONDS Partial Thromboplastin Ratio 1.0 Sodium Level 142 mmol/L 143 mmol/L Potassium Level 4.2 mmol/L 4.0 mmol/L Chloride Level 112 mmol/L 112 mmol/L Carbon Dioxide Level 25 mmol/L 26 mmol/L Anion Gap 5.0 mmol/L 5.0 mmol/L Blood Urea Nitrogen 16 mg/dl 14 mg/dl Creatinine 0.84 mg/dl 0.59 mg/dl Est Creatinine Clear Calc Drug Dose 49.2 ml/min 70.1 ml/min Estimated GFR () 78.2 103.2 Estimated GFR (Non- 67.5 89.0 BUN/Creatinine Ratio 18.5 22.9 Random Glucose 192 mg/dl 110 mg/dl Lactic Acid Level 1.7 mmol/L Calcium Level 7.9 mg/dl 7.9 mg/dl Magnesium Level 1.7 mg/dl 2.2 mg/dl Thyroid Stimulating Hormone (TSH) 0.596 uIu/ml Assessment and Plan This is a 77 year old female with a PMH of CAD, hypothyroidism, depression/ anxiety, HLD presents for a L TKA s/p L TKA PT/OT pain controlled with medications bowel regimen other management as per ortho Expected Acute Blood Loss Anemia Hgb from > 13 down to 9.1 monitor H/H, transfuse if Hgb < 8 due to CAD Hypotension patient w/ episodes of hypotension post-operatively seems to be a chronic issue orthostatic hypotension noted for now, no midodrine, IVFs as needed, monitor Hypothyroidism continue current medications Depression/Anxiety continue home medications DVT ppx as per ortho FULL CODE
[2017-06-14] MEDS: OXYCODONE HCL IR 5 MG TAB (IMMEDIATE RELEASE) PO PRN ×5 (04:24→23:31)
[2017-06-14] MEDS: LEVOTHYROXINE 50 MCG TAB PO SCH (05:43)
[2017-06-14] MEDS: ACETAMINOPHEN 500 MG TAB PO SCH ×3 (05:44→21:46)
[2017-06-14] MEDS: TRAMADOL HCL 50 MG TAB PO PRN ×2 (05:44→18:10)
[2017-06-14 06:47] LABS: HEMATOCRIT 26.6 % (37-47); MEAN CELL VOLUME 98.5 fL (80-100); MEAN CORPUSCULAR HEMOGLOBIN 31.5 pg (25-34); WHITE BLOOD COUNT 4.63 K/uL (4.8-10.8)
[2017-06-14 07:18] LABS: BUN/CREATININE RATIO 19.5 (10-20); CALCIUM 8.2 mg/dl (8.5-10.1); CREATININE 0.73 mg/dl (0.60-1.20); POTASSIUM 4.2 mmol/L (3.5-5.1)
[2017-06-14 07:20] LABS: MEAN PLATELET VOLUME 8.5 fL (7.4-10.4); PLATELET COUNT 99 K/uL (130-400)
[2017-06-14 07:22] LABS: PLT ESTIMATE NORMAL
[2017-06-14 07:33] VITALS: BP 95/59; PULSE 59; TEMP 36.6; O2SAT 92
--- NOTE | 2017-06-14 08:08 | Orthopedic Progress Note ---
Orthopedic Progress Note Date of Service Jun 14, 2017. Subjective Post OP Day: 2 Reports: feeling well, light headedness (had episode of LH last evening while standing), pain controlled w PO medications, Denies: complaints, chest pain, SOB , nausea / vomiting, calf pain Objective calves soft nontender, N/V intact, capillary refill less than 2 sec., dressing C /D/I, A&O x3, toes mobile Date Time Temp Pulse Resp B/P (MAP) Pulse Ox O2 Delivery O2 Flow Rate FiO2 06/14/17 07:33 36.6 59 15 95/59 (71) 92 Room Air 06/13/17 23:42 Room Air 06/13/17 23:16 36.7 65 15 98/62 (74) 95 Room Air 06/13/17 15:30 Room Air 06/13/17 15:03 36.5 65 18 107/66 (80) 97 Room Air 107/66 (80) 91/56 (68) 06/13/17 13:25 70 18 106/67 (80) 75 100/58 (72) 75 93/57 (69) 06/13/17 11:51 36.7 69 17 106/68 (81) 96 06/13/17 08:15 96 Room Air Laboratory Results 24 Hours: Test 06/14/17 06:18 Hematocrit 26.6 % Hemoglobin 8.5 g/dL Assessment & Plan Assessment: POD 2 s/p Right TKA Post op Anemia secondary to blood loss from surgery, H/H this am 8.5/26.6 , will monitor, may need transfusion if symptomatic. Plan: Begin PT/OT BP's remaining low Planning for OPPT Inhouse Planning Pain Management: Celebrex, Ultram, Morphine, PO Tylenol, Oxy IR DVT Prophylaxis: TEDs, SCDs, ASA Discharge Planning Discharge Planning: home with oppt Pain Management: Celebrex, PO Tylenol, Oxy IR DVT Prophylaxis: TEDs, ASA Therapy: Physical Therapy
[2017-06-14] MEDS: ASPIRIN 81 MG ECTAB PO SCH ×2 (08:46→20:49)
[2017-06-14] MEDS: CeleBREX 200 MG CAP PO SCH (08:47)
[2017-06-14] MEDS: FERROUS GLUCONATE 324 MG TAB PO SCH ×3 (08:47→18:09)
[2017-06-14] MEDS: MULTIVITAMIN TAB PO SCH (08:48)
[2017-06-14] MEDS: PANTOprazole SOD 40 MG TAB PO SCH ×2 (08:48→20:48)
[2017-06-14] MEDS: VENLAFAXINE HCL XR 75 MG CAPXR PO SCH (08:48)
[2017-06-14 13:13] VITALS: BP 71/39; PULSE 71
[2017-06-14 15:50] VITALS: BP 108/66; PULSE 73; TEMP 36.8; O2SAT 94
--- NOTE | 2017-06-14 18:05 | Progress Note ---
Subjective Date of Service: Jun 14, 2017. Subjective Pt evaluation today including: conversation w/ patient, conversation w/ family , physical exam, lab review, review of studies, review of inpatient medication list Saw/examined the patient in room 383 Patient is doing okay, +pain at the knee persists Some dizziness with changing positions Review of Systems Constitutional: No fever, No chills, No weakness Respiratory: No cough, No sputum, No shortness of breath Cardiac: No chest pain, No edema, No palpitations Abdomen: No pain, No nausea, No vomiting, No diarrhea Musculoskeletal: + joint pain (L knee) Psychiatric: No depression symptoms Heme: No abnormal bleeding/bruising Medications Current Inpatient Medications Medications (Trade) Dose Ordered Sig/Janet Route Start Time Stop Time Status Last Admin Dose Admin Atorvastatin Calcium (Lipitor Tab) 40 mg QPM PO 06/12/17 21:00 07/12/17 20:59 06/13/17 20:21 40 MG Gabapentin (Neurontin Tab) 600 mg HS PO 06/12/17 21:00 07/12/17 20:59 06/13/17 20:21 600 MG Levothyroxine Sodium (Synthroid Tab) 50 mcg DAILYBB PO 06/13/17 06:00 07/13/17 05:59 06/14/17 05:43 50 MCG Nitroglycerin (Nitrostat Tab) 0.4 mg PRN UT 06/12/17 10:00 07/12/17 09:59 Pantoprazole Sodium (Protonix Tab) 40 mg BID PO 06/12/17 21:00 07/12/17 20:59 06/14/17 08:48 40 MG Venlafaxine HCl (effeXOR EXTENDED REL CAP) 75 mg QAM PO 06/13/17 09:00 07/13/17 08:59 06/14/17 08:48 75 MG Celecoxib (CeleBREX CAP) 200 mg DAILY PO 06/13/17 09:00 07/13/17 08:59 06/13/17 10:34 200 MG Oxycodone HCl (Roxicodone Immediate Rel Tab) 1 TABLET FOR PAIN RATING... Q4H PRN PO 06/12/17 10:00 06/26/17 09:59 06/14/17 17:09 10 MG Acetaminophen (Tylenol Tab) 1,000 mg Q8H PO 06/12/17 14:00 07/12/17 13:59 06/14/17 14:30 1,000 MG Magnesium Hydroxide (Milk Of Magnesia Susp) 30 ml Q6H PRN PO 06/12/17 10:00 07/12/17 09:59 Bisacodyl (Dulcolax Supp) 10 mg DAILY PRN [place] 06/12/17 10:00 07/12/17 09:59 Al Hydrox/Mg Hydrox/Simethicone (Maalox Max Susp) 15 ml Q4H PRN PO 06/12/17 10:00 07/12/17 09:59 Multivitamins (Multivitamin Tab) 1 tab QAM PO 06/13/17 09:00 07/13/17 08:59 06/13/17 10:34 1 TAB Ondansetron HCl (Zofran Inj) 4 mg Q6H PRN IV 06/12/17 10:00 07/12/17 09:59 Ferrous Gluconate (Ferrous Gluconate Tab) 324 mg TIDM PO 06/12/17 17:45 07/12/17 17:44 06/14/17 12:56 324 MG Tramadol HCl (Ultram Tab) 1 tablet for pain rating... Q4H PRN PO 06/12/17 10:00 07/12/17 09:59 06/14/17 05:44 50 MG Morphine Sulfate (MoRPHine SULFATE INJ) 2 mg Q4HWA PRN IV 06/13/17 08:00 06/26/17 09:59 Morphine Sulfate (MoRPHine SULFATE INJ) 4 mg Q4HWA PRN IV 06/13/17 08:00 06/26/17 09:59 Aspirin (Ecotrin Tab) 81 mg BID PO 06/14/17 21:00 07/13/17 08:59 Objective Vital Signs Date Time Temp Pulse Resp B/P (MAP) Pulse Ox O2 Delivery O2 Flow Rate FiO2 06/14/17 16:30 Room Air 06/14/17 15:50 36.8 73 18 108/66 (80) 94 Room Air 06/14/17 13:13 71 06/14/17 08:45 Room Air 06/14/17 07:33 36.6 59 15 95/59 (71) 92 Room Air 06/13/17 23:42 Room Air 06/13/17 23:16 36.7 65 15 98/62 (74) 95 Room Air Physical Exam General Appearance: no apparent distress Respiratory/Chest: chest non-tender, lungs clear, normal breath sounds, no respiratory distress, no accessory muscle use Cardiovascular: regular rate, rhythm, no edema, no murmur Extremities: + swelling (R knee), + pertinent finding Neurologic/Psychiatric: no motor/sensory deficits, alert, normal mood/affect Laboratory Results Last 24 Hours Test 06/14/17 06:18 White Blood Count 4.63 K/uL Red Blood Count 2.70 M/uL Hemoglobin 8.5 g/dL Hematocrit 26.6 % Mean Corpuscular Volume 98.5 fL Mean Corpuscular Hemoglobin 31.5 pg Mean Corpuscular Hemoglobin Concent 32.0 g/dl RDW Standard Deviation 50.1 fL RDW Coefficient of Variation 14.1 % Platelet Count 99 K/uL Mean Platelet Volume 8.5 fL Platelet Estimate NORMAL Sodium Level 144 mmol/L Potassium Level 4.2 mmol/L Chloride Level 113 mmol/L Carbon Dioxide Level 28 mmol/L Anion Gap 3.0 mmol/L Blood Urea Nitrogen 14 mg/dl Creatinine 0.73 mg/dl Est Creatinine Clear Calc Drug Dose 56.6 ml/min Estimated GFR () 92.7 Estimated GFR (Non- 80.0 BUN/Creatinine Ratio 19.5 Random Glucose 104 mg/dl Calcium Level 8.2 mg/dl Assessment and Plan This is a 77 year old female with a PMH of CAD, hypothyroidism, depression/ anxiety, HLD presents for a L TKA s/p L TKA 06/14 continue PT/OT plan for d/c home if Hgb stable will check CBC in AM, if Hgb drops again, will transfuse one unit PT/OT pain controlled with medications bowel regimen other management as per ortho Expected Acute Blood Loss Anemia 06/14 will check CBC in AM, if Hgb drops again, will transfuse one unit 06/13 Hgb from > 13 down to 9.1 monitor H/H, transfuse if Hgb < 8 due to CAD Hypotension - improving patient w/ episodes of hypotension post-operatively seems to be a chronic issue orthostatic hypotension noted for now, no midodrine, IVFs as needed, monitor Hypothyroidism continue current medications Depression/Anxiety continue home medications DVT ppx as per ortho FULL CODE
[2017-06-14] MEDS: GABAPENTIN 600 MG TAB PO SCH (20:48)
[2017-06-14] MEDS: ATORVASTATIN 40 MG TAB PO SCH (20:48)
[2017-06-14 22:56] VITALS: BP 97/61; PULSE 71; TEMP 37; O2SAT 96
[2017-06-15] VITALS (11 sets, daily range): BP systolic 98–121; BP diastolic 55–78; PULSE 67–73; TEMP 36.3–36.9; O2SAT 94–97
[2017-06-15] MEDS: TRAMADOL HCL 50 MG TAB PO PRN ×2 (05:45→21:27)
[2017-06-15] MEDS: ACETAMINOPHEN 500 MG TAB PO SCH ×3 (06:12→21:27)
[2017-06-15] MEDS: LEVOTHYROXINE 50 MCG TAB PO SCH (06:13)
[2017-06-15 07:04] LABS: HEMATOCRIT 25.8 % (37-47); MEAN CELL VOLUME 99.2 fL (80-100); MEAN CORPUSCULAR HEMOGLOBIN 32.3 pg (25-34); MEAN CORPUSCULAR HGB CONC 32.6 g/dl (32-36); WHITE BLOOD COUNT 4.88 K/uL (4.8-10.8)
[2017-06-15 07:48] LABS: MEAN PLATELET VOLUME 8.6 fL (7.4-10.4); PLATELET COUNT 98 K/uL (130-400)
[2017-06-15 07:49] LABS: PLT ESTIMATE DECREASED
[2017-06-15] MEDS: PANTOprazole SOD 40 MG TAB PO SCH ×2 (08:14→21:27)
[2017-06-15] MEDS: FERROUS GLUCONATE 324 MG TAB PO SCH ×3 (08:14→17:24)
[2017-06-15] MEDS: MULTIVITAMIN TAB PO SCH (08:15)
[2017-06-15] MEDS: CeleBREX 200 MG CAP PO SCH (08:15)
[2017-06-15] MEDS: ASPIRIN 81 MG ECTAB PO SCH ×2 (08:15→21:27)
[2017-06-15] MEDS: VENLAFAXINE HCL XR 75 MG CAPXR PO SCH (10:26)
--- NOTE | 2017-06-15 11:20 | Orthopedic Progress Note ---
Orthopedic Progress Note Date of Service Jun 15, 2017. Subjective Post OP Day: 3 Reports: light headedness, pain controlled w PO medications, Denies: chest pain , SOB, nausea / vomiting, calf pain Objective Date Time Temp Pulse Resp B/P (MAP) Pulse Ox O2 Delivery O2 Flow Rate FiO2 06/15/17 07:15 36.7 73 16 100/61 (74) 95 Room Air 06/14/17 23:30 Room Air 06/14/17 22:56 37.0 71 16 97/61 (73) 96 Room Air 06/14/17 16:30 Room Air 06/14/17 15:50 36.8 73 18 108/66 (80) 94 Room Air 06/14/17 13:13 71 Laboratory Results 24 Hours: Test 06/15/17 06:45 Hematocrit 25.8 % Hemoglobin 8.4 g/dL Assessment & Plan Assessment: POD 3 s/p Right TKA Post op Anemia secondary to blood loss from surgery, H/H this am 8.4 Will tranfuse 1 unit today Recheck tomorrow Plan: Begin PT/OT BP's remaining low Planning for OPPT Inhouse Planning Pain Management: Celebrex, Ultram, PO Tylenol, Oxy IR DVT Prophylaxis: TEDs, SCDs, ASA Discharge Planning Discharge Planning: home with oppt Pain Management: Celebrex, PO Tylenol, Oxy IR DVT Prophylaxis: TEDs, ASA Therapy: Physical Therapy
[2017-06-15] MEDS ORDERED: DiphenhydrAMINE HCL 50 MG/ML VIAL IV SCH (12:00)
[2017-06-15] MEDS ORDERED: ACETAMINOPHEN 325 MG TAB PO SCH (12:00)
--- NOTE | 2017-06-15 12:13 | Progress Note ---
Subjective Date of Service: Jun 15, 2017. Subjective Pt evaluation today including: conversation w/ patient, physical exam, lab review, review of studies, review of inpatient medication list Saw/examined the patient in room 383 Doing well, no significant pain some dizziness and weakness persist since surgery Review of Systems Constitutional: + weakness, No fever, No chills Respiratory: No cough, No sputum, No shortness of breath Cardiac: No chest pain Abdomen: No pain, No nausea, No vomiting, No diarrhea Musculoskeletal: + joint pain (controlled with medications) Heme: No abnormal bleeding/bruising Medications Current Inpatient Medications Medications (Trade) Dose Ordered Sig/Janet Route Start Time Stop Time Status Last Admin Dose Admin Atorvastatin Calcium (Lipitor Tab) 40 mg QPM PO 06/12/17 21:00 07/12/17 20:59 06/14/17 20:48 40 MG Gabapentin (Neurontin Tab) 600 mg HS PO 06/12/17 21:00 07/12/17 20:59 06/14/17 20:48 600 MG Levothyroxine Sodium (Synthroid Tab) 50 mcg DAILYBB PO 06/13/17 06:00 07/13/17 05:59 06/15/17 06:13 50 MCG Nitroglycerin (Nitrostat Tab) 0.4 mg PRN UT 06/12/17 10:00 07/12/17 09:59 Pantoprazole Sodium (Protonix Tab) 40 mg BID PO 06/12/17 21:00 07/12/17 20:59 06/15/17 08:14 40 MG Venlafaxine HCl (effeXOR EXTENDED REL CAP) 75 mg QAM PO 06/13/17 09:00 07/13/17 08:59 06/15/17 10:26 75 MG Celecoxib (CeleBREX CAP) 200 mg DAILY PO 06/13/17 09:00 07/13/17 08:59 06/15/17 08:15 200 MG Oxycodone HCl (Roxicodone Immediate Rel Tab) 1 TABLET FOR PAIN RATING... Q4H PRN PO 06/12/17 10:00 06/26/17 09:59 06/14/17 23:31 10 MG Acetaminophen (Tylenol Tab) 1,000 mg Q8H PO 06/12/17 14:00 07/12/17 13:59 06/15/17 06:12 1,000 MG Magnesium Hydroxide (Milk Of Magnesia Susp) 30 ml Q6H PRN PO 06/12/17 10:00 07/12/17 09:59 Bisacodyl (Dulcolax Supp) 10 mg DAILY PRN MD 06/12/17 10:00 07/12/17 09:59 Al Hydrox/Mg Hydrox/Simethicone (Maalox Max Susp) 15 ml Q4H PRN PO 06/12/17 10:00 07/12/17 09:59 Multivitamins (Multivitamin Tab) 1 tab QAM PO 06/13/17 09:00 07/13/17 08:59 06/15/17 08:15 1 TAB Ondansetron HCl (Zofran Inj) 4 mg Q6H PRN IV 06/12/17 10:00 07/12/17 09:59 Ferrous Gluconate (Ferrous Gluconate Tab) 324 mg TIDM PO 06/12/17 17:45 07/12/17 17:44 06/15/17 08:14 324 MG Tramadol HCl (Ultram Tab) 1 tablet for pain rating... Q4H PRN PO 06/12/17 10:00 07/12/17 09:59 06/15/17 05:45 100 MG Morphine Sulfate (MoRPHine SULFATE INJ) 2 mg Q4HWA PRN IV 06/13/17 08:00 06/26/17 09:59 Morphine Sulfate (MoRPHine SULFATE INJ) 4 mg Q4HWA PRN IV 06/13/17 08:00 06/26/17 09:59 Aspirin (Ecotrin Tab) 81 mg BID PO 06/14/17 21:00 07/13/17 08:59 06/15/17 08:15 81 MG Acetaminophen (Tylenol Tab) 650 mg TODAY@1200 PO 06/15/17 12:00 06/15/17 23:59 Diphenhydramine HCl (Benadryl Inj) 25 mg TODAY@1200 IV 06/15/17 12:00 06/15/17 23:59 Furosemide 20 mg/ Syringe 2 ml @ 4 mls/min TODAY@1300 IV 06/15/17 13:00 06/15/17 23:59 Objective Vital Signs Date Time Temp Pulse Resp B/P (MAP) Pulse Ox O2 Delivery O2 Flow Rate FiO2 06/15/17 07:15 36.7 73 16 100/61 (74) 95 Room Air 06/14/17 23:30 Room Air 06/14/17 22:56 37.0 71 16 97/61 (73) 96 Room Air 06/14/17 16:30 Room Air 06/14/17 15:50 36.8 73 18 108/66 (80) 94 Room Air 06/14/17 13:13 71 Physical Exam General Appearance: no apparent distress Respiratory/Chest: lungs clear, normal breath sounds, no respiratory distress, no accessory muscle use Cardiovascular: regular rate, rhythm, no edema, no murmur Abdomen: normal bowel sounds, non tender, soft Extremities: + pertinent finding (L knee swelling) Laboratory Results Last 24 Hours Test 06/15/17 06:45 White Blood Count 4.88 K/uL Red Blood Count 2.60 M/uL Hemoglobin 8.4 g/dL Hematocrit 25.8 % Mean Corpuscular Volume 99.2 fL Mean Corpuscular Hemoglobin 32.3 pg Mean Corpuscular Hemoglobin Concent 32.6 g/dl RDW Standard Deviation 49.9 fL RDW Coefficient of Variation 13.9 % Platelet Count 98 K/uL Mean Platelet Volume 8.6 fL Platelet Estimate DECREASED Assessment and Plan This is a 77 year old female with a PMH of CAD, hypothyroidism, depression/ anxiety, HLD presents for a L TKA s/p L TKA 06/15 agree with plan to transfuse one unit PRBC this will help with Hgb and blood pressure issues recheck CBC in AM 06/14 continue PT/OT plan for d/c home if Hgb stable will check CBC in AM, if Hgb drops again, will transfuse one unit PT/OT pain controlled with medications bowel regimen other management as per ortho Expected Acute Blood Loss Anemia 06/15 currently transfusing one unit PRBC 06/14 will check CBC in AM, if Hgb drops again, will transfuse one unit 06/13 Hgb from > 13 down to 9.1 monitor H/H, transfuse if Hgb < 8 due to CAD Hypotension - improving patient w/ episodes of hypotension post-operatively seems to be a chronic issue orthostatic hypotension noted for now, no midodrine, IVFs as needed, monitor Hypothyroidism continue current medications Depression/Anxiety continue home medications DVT ppx as per ortho FULL CODE
[2017-06-15] MEDS ORDERED: FUROSEMIDE INJ 20 MG in SYRINGE 0 ML IV SCH (13:00)
[2017-06-15] MEDS: GABAPENTIN 600 MG TAB PO SCH (21:26)
[2017-06-15] MEDS: ATORVASTATIN 40 MG TAB PO SCH (21:27)
[2017-06-16 00:40] LABS: HEMATOCRIT 30.2 % (37-47); MEAN CELL VOLUME 95.3 fL (80-100); MEAN CORPUSCULAR HEMOGLOBIN 31.5 pg (25-34); MEAN CORPUSCULAR HGB CONC 33.1 g/dl (32-36); MEAN PLATELET VOLUME 8.6 fL (7.4-10.4); PLATELET COUNT 119 K/uL (130-400); RED BLOOD COUNT 3.17 M/uL (4.2-5.4); WHITE BLOOD COUNT 5.77 K/uL (4.8-10.8)
[2017-06-16] MEDS: LEVOTHYROXINE 50 MCG TAB PO SCH (05:50)
[2017-06-16] MEDS: TRAMADOL HCL 50 MG TAB PO PRN (05:51)
[2017-06-16] MEDS: ACETAMINOPHEN 500 MG TAB PO SCH (05:51)
[2017-06-16 07:11] VITALS: BP 105/65; PULSE 67; TEMP 36.6; O2SAT 95
--- NOTE | 2017-06-16 09:09 | Orthopedic Progress Note ---
Orthopedic Progress Note Date of Service Jun 16, 2017. Subjective Post OP Day: 4 Reports: feeling well, pain controlled w PO medications, Denies: chest pain, SOB , nausea / vomiting, light headedness, calf pain Objective calves soft nontender, N/V intact, capillary refill less than 2 sec., incision C /D/I, A&O x3, toes mobile swelling left knee, no signs DVT/infection Date Time Temp Pulse Resp B/P (MAP) Pulse Ox O2 Delivery O2 Flow Rate FiO2 06/16/17 07:11 36.6 67 16 105/65 (78) 95 Room Air 06/16/17 00:56 Room Air 06/15/17 22:55 36.8 67 18 109/57 (74) 96 Room Air 06/15/17 20:10 36.8 69 18 103/64 (77) 97 Room Air 06/15/17 17:17 36.9 72 16 117/66 96 06/15/17 16:45 Room Air 06/15/17 16:30 36.7 73 16 121/78 96 06/15/17 15:30 36.5 69 16 110/68 94 06/15/17 15:00 36.7 73 18 112/69 95 06/15/17 14:46 36.9 71 18 116/74 94 06/15/17 14:30 36.7 73 18 98/55 95 06/15/17 14:15 36.8 73 18 113/62 95 06/15/17 13:50 36.3 73 20 104/66 Laboratory Results 24 Hours: Test 06/16/17 00:28 Hematocrit 30.2 % Hemoglobin 10.0 g/dL Assessment & Plan Assessment: POD 3 s/p Right TKA Post op Anemia secondary to blood loss from surgery, H/H this am10.0/30.2 increased after blood transfusion. She notes she feels better, "not as off as I did before" Will plan for Discharge to Home with later today if continuing to feel better Plan: Begin PT/OT BP's remaining low Planning for OPPT Inhouse Planning Pain Management: Celebrex, Ultram, PO Tylenol, Oxy IR DVT Prophylaxis: TEDs, SCDs, ASA Discharge Planning Discharge Planning: home with home health Pain Management: Celebrex, PO Tylenol, Oxy IR DVT Prophylaxis: TEDs, ASA Therapy: Physical Therapy
[2017-06-16] MEDS ORDERED: ULT50X PO (09:15)
[2017-06-16] MEDS ORDERED: FRRG PO (09:15)
[2017-06-16] MEDS ORDERED: CLB200 PO (09:15)
[2017-06-16] MEDS ORDERED: OXYSR/10 PO (09:15)
[2017-06-16] MEDS ORDERED: ACET-24 PO (09:15)
[2017-06-16] MEDS ORDERED: MULT-890 PO (09:15)
[2017-06-16] MEDS ORDERED: ASPEC81 PO (09:15)
[2017-06-16] MEDS: ASPIRIN 81 MG ECTAB PO SCH (09:17)
[2017-06-16] MEDS: VENLAFAXINE HCL XR 75 MG CAPXR PO SCH (09:17)
[2017-06-16] MEDS: FERROUS GLUCONATE 324 MG TAB PO SCH ×2 (09:17→12:23)
[2017-06-16] MEDS: MULTIVITAMIN TAB PO SCH (09:17)
[2017-06-16] MEDS: PANTOprazole SOD 40 MG TAB PO SCH (09:17)
[2017-06-16] MEDS: CeleBREX 200 MG CAP PO SCH (09:18)
--- NOTE | 2017-06-16 10:08 | Progress Note ---
Subjective Date of Service: Jun 16, 2017. Subjective Pt evaluation today including: conversation w/ patient, physical exam, lab review, review of studies, review of inpatient medication list Saw/examined the patient in room 383 Doing well today s/p transfusion - feels fine, no shortness of breath, no fevers/chills blood pressures are improved Review of Systems Constitutional: No fever, No chills, No weakness Respiratory: No cough, No shortness of breath Cardiac: No chest pain Abdomen: No pain, No nausea, No vomiting, No diarrhea Musculoskeletal: + joint pain (L knee, improving with medications) Heme: No abnormal bleeding/bruising Medications Current Inpatient Medications Medications (Trade) Dose Ordered Sig/Janet Route Start Time Stop Time Status Last Admin Dose Admin Atorvastatin Calcium (Lipitor Tab) 40 mg QPM PO 06/12/17 21:00 07/12/17 20:59 06/15/17 21:27 40 MG Gabapentin (Neurontin Tab) 600 mg HS PO 06/12/17 21:00 07/12/17 20:59 06/15/17 21:26 600 MG Levothyroxine Sodium (Synthroid Tab) 50 mcg DAILYBB PO 06/13/17 06:00 07/13/17 05:59 06/16/17 05:50 50 MCG Nitroglycerin (Nitrostat Tab) 0.4 mg PRN UT 06/12/17 10:00 07/12/17 09:59 Pantoprazole Sodium (Protonix Tab) 40 mg BID PO 06/12/17 21:00 07/12/17 20:59 06/16/17 09:17 40 MG Venlafaxine HCl (effeXOR EXTENDED REL CAP) 75 mg QAM PO 06/13/17 09:00 07/13/17 08:59 06/16/17 09:17 75 MG Celecoxib (CeleBREX CAP) 200 mg DAILY PO 06/13/17 09:00 07/13/17 08:59 06/16/17 09:18 200 MG Oxycodone HCl (Roxicodone Immediate Rel Tab) 1 TABLET FOR PAIN RATING... Q4H PRN PO 06/12/17 10:00 06/26/17 09:59 06/14/17 23:31 10 MG Acetaminophen (Tylenol Tab) 1,000 mg Q8H PO 06/12/17 14:00 07/12/17 13:59 06/16/17 05:51 1,000 MG Magnesium Hydroxide (Milk Of Magnesia Susp) 30 ml Q6H PRN PO 06/12/17 10:00 07/12/17 09:59 Bisacodyl (Dulcolax Supp) 10 mg DAILY PRN [place] 06/12/17 10:00 07/12/17 09:59 Al Hydrox/Mg Hydrox/Simethicone (Maalox Max Susp) 15 ml Q4H PRN PO 06/12/17 10:00 07/12/17 09:59 Multivitamins (Multivitamin Tab) 1 tab QAM PO 06/13/17 09:00 07/13/17 08:59 06/16/17 09:17 1 TAB Ondansetron HCl (Zofran Inj) 4 mg Q6H PRN IV 06/12/17 10:00 07/12/17 09:59 Ferrous Gluconate (Ferrous Gluconate Tab) 324 mg TIDM PO 06/12/17 17:45 07/12/17 17:44 06/16/17 09:17 324 MG Tramadol HCl (Ultram Tab) 1 tablet for pain rating... Q4H PRN PO 06/12/17 10:00 07/12/17 09:59 06/16/17 05:51 100 MG Morphine Sulfate (MoRPHine SULFATE INJ) 2 mg Q4HWA PRN IV 06/13/17 08:00 06/26/17 09:59 Morphine Sulfate (MoRPHine SULFATE INJ) 4 mg Q4HWA PRN IV 06/13/17 08:00 06/26/17 09:59 Aspirin (Ecotrin Tab) 81 mg BID PO 06/14/17 21:00 07/13/17 08:59 06/16/17 09:17 81 MG Objective Vital Signs Date Time Temp Pulse Resp B/P (MAP) Pulse Ox O2 Delivery O2 Flow Rate FiO2 06/16/17 07:11 36.6 67 16 105/65 (78) 95 Room Air 06/16/17 00:56 Room Air 06/15/17 22:55 36.8 67 18 109/57 (74) 96 Room Air 06/15/17 20:10 36.8 69 18 103/64 (77) 97 Room Air 06/15/17 17:17 36.9 72 16 117/66 96 7/22/17 16:45 Room Air 06/15/17 16:30 36.7 73 16 121/78 96 06/15/17 15:30 36.5 69 16 110/68 94 06/15/17 15:00 36.7 73 18 112/69 95 06/15/17 14:46 36.9 71 18 116/74 94 06/15/17 14:30 36.7 73 18 98/55 95 06/15/17 14:15 36.8 73 18 113/62 95 06/15/17 13:50 36.3 73 20 104/66 Physical Exam General Appearance: no apparent distress Respiratory/Chest: lungs clear, normal breath sounds, no respiratory distress, no accessory muscle use Cardiovascular: regular rate, rhythm, no edema, no murmur Abdomen: normal bowel sounds, non tender, soft Extremities: + pertinent finding (L knee swelling, wrapped) Laboratory Results Last 24 Hours Test 06/15/17 20:42 06/16/17 00:28 Bedside Glucose 133 mg/dl White Blood Count 5.77 K/uL Red Blood Count 3.17 M/uL Hemoglobin 10.0 g/dL Hematocrit 30.2 % Mean Corpuscular Volume 95.3 fL Mean Corpuscular Hemoglobin 31.5 pg Mean Corpuscular Hemoglobin Concent 33.1 g/dl RDW Standard Deviation 52.2 fL RDW Coefficient of Variation 15.1 % Platelet Count 119 K/uL Mean Platelet Volume 8.6 fL Assessment and Plan This is a 77 year old female with a PMH of CAD, hypothyroidism, depression/ anxiety, HLD presents for a L TKA s/p L TKA 06/16 doing well PT/OT d/c home with home healthsirisha from medical standpoint 06/15 agree with plan to transfuse one unit PRBC this will help with Hgb and blood pressure issues recheck CBC in AM 06/14 continue PT/OT plan for d/c home if Hgb stable will check CBC in AM, if Hgb drops again, will transfuse one unit PT/OT pain controlled with medications bowel regimen other management as per ortho Expected Acute Blood Loss Anemia 06/16 Hgb > 10 s/p one unit PRBC blood pressures are improved after transfusion 06/15 currently transfusing one unit PRBC 06/14 will check CBC in AM, if Hgb drops again, will transfuse one unit 06/13 Hgb from > 13 down to 9.1 monitor H/H, transfuse if Hgb < 8 due to CAD Hypotension - improving patient w/ episodes of hypotension post-operatively seems to be a chronic issue orthostatic hypotension noted for now, no midodrine, IVFs as needed, monitor Hypothyroidism continue current medications Depression/Anxiety continue home medications DVT ppx as per ortho FULL CODE
[2017-06-16 10:26] VITALS: BP 95/46; PULSE 67; O2SAT 95
[2017-06-16 12:57] VITALS: BP 95/46; PULSE 67; TEMP 36.6; O2SAT 95
--- NOTE | 2017-06-18 21:23 | DISCHARGE SUMMARY ---
DISCHARGE DIAGNOSIS: Degenerative joint disease, left knee. SECONDARY DIAGNOSES: Coronary artery disease, status post stenting, hyperlipidemia, autoimmune hemolytic anemia, gastroesophageal reflux disease, hypothyroidism, restless legs syndrome, past tobacco use. CONSULT: Dr. Jamarcus Diallo. COMPLICATIONS: None. PROCEDURES: Left total knee arthroplasty, performed by Dr. Garner on 06/12/2017. BRIEF HISTORY: As dictated in the history and physical. HOSPITAL SUMMARY: Patient was admitted on the above-noted date and had the above-noted surgery performed, which she tolerated well. Later on, in the evening, Dr. Diallo had seen the patient and it was noted that she was having low blood pressures with systolic blood pressures in the 80s. An IV fluid bolus was given and he continued to follow her stay. She was having postop hypotension, which was felt to be multifactorial and it was resolved after her initial fluid bolus. On her first postoperative day, she was feeling well, but denied chest pain and denied shortness of breath or nausea or vomiting. She stated that she was having a fair amount of drainage the previous night and that the Hemovac had to be taken off suction, but was not draining much now. She was seen by medicine service, as noted, and treated accordingly. The calves were soft and nontender, neurovascularly intact, dressings clean, dry and intact, toes were mobile. Vital signs showed temperature 36.4, pulse 63, respirations 17, and BP 96/60. Hemoglobin was 9.1 and she was started on a physical therapy protocol and continued on DVT prophylaxis and pain management. By her second postoperative day, she was feeling well, but was having some lightheadedness. She had an episode of lightheadedness the previous evening while standing. Pain was controlled. She had no other complaints. The calves were nontender, neurovascularly intact, dressings clean, dry and intact, toes were mobile, BP was 95/59, pulse 59 and hemoglobin was 8.5. Plans were to continue to monitor and continue her PT protocol and DVT prophylaxis and pain management. Over the next day or so, she continued to have lightheadedness and was transfused 1 unit of PRBCs. By her fourth postoperative day, she was feeling well and pain was controlled. Calves were soft and nontender, neurovascularly intact, incision was benign, toes were mobile. Vital signs were improved with a BP of 105/65, hemoglobin was 10.0, post transfusion. She was progressed in her physical therapy and otherwise, remaining stable. Dr. Ball felt that the patient was stable for discharge to home and it was felt that she could be discharged to home on 06/16/2017. For further review, please see chart. LAB AND X-RAY DATA: As per chart. DISCHARGE INSTRUCTIONS: Patient was discharged to home in satisfactory condition on 06/16/2017. DIET: Low-lactose diet. ACTIVITY: Weightbearing as tolerated, left lower extremity. Follow TKA instruction sheets and special care instructions, as noted. Follow up with Dr. Garner in two weeks. Patient to call for appointment, if one has not been made for you. DISCHARGE MEDICATIONS: Acetaminophen 1000 mg p.o. q. 8 hours, aspirin 81 mg p.o. b.i.d. for 30 days, Celebrex 200 mg p.o. daily for 30 days, ferrous gluconate 324 mg p.o. t.i.d., multivitamin 1 tablet p.o. q.a.m., OxyContin 10 mg p.o. b.i.d., tramadol 50-100 mg p.o. q. 4 hours p.r.n., resume home meds as listed in the continue medications section and stop taking your original acetaminophen tablet and resume your once-daily dosing of aspirin after 30 days.
== END 2017-06-16 13:40 | disposition home or self-care (01) | DRG 470 ==
LOC: C.ACU 06:01 → C.MSN 06:45 → ENRESERV 10:32
PROVIDERS: ADMIT Orthopaedic Surgery; ATTEND Orthopaedic Surgery
PROC: 0SRD0J9 Replacement of Left Knee Joint with Synthetic Substitute, Cemented, Open Approach (ICD-10-PCS; principal; 2017-06-12 08:00)
DX: M17.12 Unilateral primary osteoarthritis, left knee (principal); D62 Acute posthemorrhagic anemia; I25.10 Atherosclerotic heart disease of native coronary artery without angina pectoris; Z95.5 Presence of coronary angioplasty implant and graft; E78.5 Hyperlipidemia, unspecified; K21.9 Gastro-esophageal reflux disease without esophagitis; R19.7 Diarrhea, unspecified; F41.9 Anxiety disorder, unspecified; F32.9 Major depressive disorder, single episode, unspecified; E86.0 Dehydration; I95.81 Postprocedural hypotension; D69.6 Thrombocytopenia, unspecified; E03.9 Hypothyroidism, unspecified; G25.81 Restless legs syndrome; R23.1 Pallor; Z79.82 Long term (current) use of aspirin; Z79.899 Other long term (current) drug therapy; Z87.442 Personal history of urinary calculi; Z90.710 Acquired absence of both cervix and uterus; Z90.49 Acquired absence of other specified parts of digestive tract; Z88.5 Allergy status to narcotic agent; Z91.048 Other nonmedicinal substance allergy status

== ENCOUNTER 2020-12-16 13:31 | Observation (INO) ==
[2020-12-16] MEDS ORDERED: ONDANSETRON INJ 2 MG/ML 2 ML VIAL IV STA (14:25)
[2020-12-16] MEDS ORDERED: SODIUM CHLORIDE 0.9% 1000ML 1,000 ML IV SCH (14:30)
[2020-12-16 14:59] LABS: Basophils # (auto) 0.02 K/uL (0-0.2); Basophils % (auto) 0.3 %; Eosinophils # (auto) 0.02 K/uL (0-0.5); Eosinophils % (auto) 0.3 %; Hematocrit (blood only) 44.7 % (37-47); Hemoglobin 15.4 g/dL (12.0-16.0); Immature Granulocytes # (auto) 0.01 K/uL (0.00-0.02); Immature Granulocytes % (auto) 0.2 %; Lymphocytes # (auto) 0.87 K/uL (1.2-3.4); Mean Corpuscular Hemoglobin 33.6 pg (25-34); Mean Corpuscular Hgb Conc 34.5 g/dL (32-36); Mean Corpuscular Volume 97.4 fL (80-100); Mean Platelet Volume 9.1 fL (7.4-10.4); Monocytes # (auto) 0.41 K/uL (0.11-0.59); Monocytes % (auto) 6.6 %; Neutrophils # (auto) 4.88 K/uL (1.4-6.5); Neutrophils % (auto) 78.6 %; Platelet Count 162 K/uL (130-400); RDW Standard Deviation 45.7 fL (36.4-46.3); Red Blood Count 4.59 M/uL (4.2-5.4); White Blood Count 6.21 K/uL (4.8-10.8)
--- NOTE | 2020-12-16 15:02 | XRay Report ---
XR chest 1V portable HISTORY: weakness COMPARISON: Chest 05/21/2017. FINDINGS: No pneumothorax. No pleural effusions. The heart is normal in size. A left coronary artery stent is noted. The lungs are clear. No evidence for pulmonary edema. There is a large hiatus hernia, unchanged. IMPRESSION: 1. No acute process within the chest. 2. Large hiatus hernia is again noted. ACT 112: Negative or not required by law. Electronically signed by: Blake Obando M.D. 12/16/2020 3:01 PM
[2020-12-16 15:28] LABS: Alanine Aminotransferase 25 U/L (12-78); Albumin Level 3.9 gm/dl (3.4-5.0); BUN Creatinine Ratio 14.5 (10-20); Blood Urea Nitrogen 10 mg/dl (7-18); Calcium 9.1 mg/dl (8.5-10.1); Carbon Dioxide 29 mmol/L (21-32); Chloride 110 mmol/L (98-107); Creatinine Clr Calc Pharmacy 55.5 ml/min; Est GFR (African American) 96.4; Est GFR (Non-African American) 83.2; Glucose 111 mg/dl (70-99); Sodium 143 mmol/L (136-145)
[2020-12-16 15:34] LABS: Albumin Globulin Ratio 1.3 (0.9-2); Alkaline Phosphatase 94 U/L (45-117); Bilirubin,Total 0.8 mg/dl (0.2-1); Thyroid Stimulating Hormone 0.953 uIu/ml (0.300-4.500); Total Protein 6.9 gm/dl (6.4-8.2); Troponin I < 0.015 ng/ml (0-0.045)
[2020-12-16 16:30] LABS: Potassium 3.6 mmol/L (3.5-5.1)
[2020-12-16 16:35] LABS: Magnesium 2.2 mg/dl (1.8-2.4)
[2020-12-16] MEDS ORDERED: IOVERSOL 100ml IV ONE (17:04)
--- NOTE | 2020-12-16 17:19 | CT Scan Report ---
CT SCAN OF THE BRAIN WITHOUT IV CONTRAST CLINICAL HISTORY: Change in mental status. COMPARISON STUDY: MRI of the brain dated 01/25/2020. TECHNIQUE: Unenhanced axial CT scan of the brain is performed from the vertex to the skull base. A do se lowering technique was utilized adhering to the principles of ALARA. CT DOSE: 537.48 mGy.cm FINDINGS: Brain parenchyma: There are age-related involutional changes noting mild to moderate subcortical and periventricular microangiopathic change. There is no hemorrhage, mass effect, or evidence of acute t erritorial ischemia by CT criteria. Mullins-white matter differentiation is preserved. No extra-axial fl uid collection is seen. Ventricles, sulci, cisterns: Prominent secondary to involutional change. Intracranial vasculature: There is atherosclerotic calcification of the cavernous carotid and vertebr al arteries. Calvarium: Unremarkable. Sinuses and mastoids: The visualized paranasal sinuses are clear. The mastoid air cells are well pneu matized. Orbits: The bony orbits are grossly intact. There are bilateral ocular lens implants. IMPRESSION: There is no hemorrhage, mass effect, or evidence of acute territorial ischemia by CT tao huffman. ACT 112: Negative or not required by law. Electronically signed by: Andrez Niño M.D. 12/16/2020 5:18 PM
--- NOTE | 2020-12-16 17:27 | CT Scan Report ---
CT SCAN OF THE ABDOMEN AND PELVIS WITH IV CONTRAST CLINICAL HISTORY: Epigastric abdominal pain. Abdominal fullness. COMPARISON STUDY: Abdominal ultrasound dated 07/09/2014. TECHNIQUE: Following the IV administration of 94 cc of Optiray 320, CT scan of the abdomen and pelvi s is performed from the lung bases to the proximal femora. Images are reviewed in the axial, sagittal , and coronal planes. IV contrast was administered without complication. A dose lowering technique wa s utilized adhering to the principles of ALARA. CT DOSE: 262.96 mGy.cm FINDINGS: Lung bases: The heart is normal in size and without pericardial effusion. The coronary arteries are d ensely calcified. The lung bases are clear noting bibasilar scarring/atelectasis. There is a large hi atal hernia, with the majority of the stomach located in the thoracic cavity. Liver: The contrast-enhanced liver is normal in size, contour, and attenuation. Fatty infiltration is seen adjacent to falciform ligament. There is mild intrahepatic biliary ductal dilatation. The hepat ic veins and portal veins are patent. Gallbladder: Surgically absent noting clips in the gallbladder fossa. Spleen: Normal in size and attenuation. Pancreas: Unremarkable. Adrenal glands: Unremarkable. Kidneys: The contrast enhanced kidneys demonstrate mild cortical atrophy and are without hydronephros is. The kidneys enhance symmetrically. Scattered subcentimeter cortical hypodensities likely represen t cysts but are too small for definitive characterization. Abdominal vasculature: The abdominal aorta is normal in course and caliber noting advanced atheroscle rotic calcification. Bowel: There is rectosigmoid fecal retention and moderate constipation. No bowel obstruction is seen. There is moderate colonic diverticulosis without CT evidence of acute diverticulitis. The appendix i s well-visualized and normal. Peritoneum: There is no intraperitoneal free air or abdominal ascites. Lymphadenopathy: None. Pelvic viscera: The bladder is normal as visualized. The uterus is surgically absent. No adnexal lesi on is seen. Skeletal structures: The skeletal structures are osteopenic. Mild to moderate lumbosacral spondylosis and scoliosis are observed. No lytic or blastic lesions are seen. IMPRESSION: 1. There are no acute infectious or inflammatory findings in the abdomen or pelvis. 2. Large hiatal hernia, with the majority of the stomach located in the thoracic cavity. 3. There is rectosigmoid fecal retention and moderate constipation. 4. Colonic diverticulosis without CT evidence of acute diverticulitis. 5. Advanced coronary artery calcification. 6. Additional findings as above. ACT 112: Positive. There are findings on this exam that require communication between the performing entity and the patient following Patient Test Result Information Act ([place] Act 112) guidelines. Electronically signed by: Andrez Niño M.D. 12/16/2020 5:26 PM
[2020-12-16 18:31] LABS: Appearance Urine Clear (Clear); Bacteria Urine Automated Negative (Negative); Bilirubin Urine Negative (Negative); Blood Urine Trace (Negative); Color Urine Yellow; Epithelial Cell Urine Auto 20-30 /lpf (0-5); Glucose Urine UA Negative (Negative); Ketones Urine Trace (Negative); Leukocyte Esterase Urine Trace (Negative); Nitrite Urine Negative (Negative); Protein Urine Negative (Negative); RBC Urine Automated 0-4 /hpf (0-4); Specific Gravity Urine > 1.045 (1.000-1.030); Urobilinogen Urine Negative (Negative)
--- NOTE | 2020-12-16 19:47 | History & Physical Report ---
Date of Service December 16, 2020 Assessment & Plan (1) Depression: is a 80-year-old female with past medical history of CAD w/ stent, HTN, HLD, anxiety, and mild cognitive impairment who presented with complaints of feeling weak & tired for several weeks. She has also been crying a lot and e xpresses that she does not want to be a burden to others, as well as feeling that it would be better if she wasn't around. These changes have occurred since late October, per patient's family. Likely that this is depression, but frontotemporal dementia or frontal lobe infarct could possibly cause personality changes. Will admit for observation to medical gardner for further evaluation. Depression - Likely cause of her symptoms and recent personality changes - Per nphro and PCP notes, there seems to be some mild cognitive impairment vs dementia as well--patient has mild memory difficulties when speaking to me (medications, dates, etc) - Head CT negative for acute intracranial abnormalities - Geriatric depression scale done at bedside with score of 4 (>5 suggestive of depression) - Continue Effexor 50mg PO daily for now - Consult psychiatry - Would consider tapering off venlafaxine and eventually starting an SSRI such as Lexapro, but will defer to psych Anxiety - Per PCP note, patient has anxiety as well - Recently added buspar 5-10mg PO TID prn anxiety to her usual Effexor - Has been on Effexor for 15-20 years per patient and family Coronary Artery Disease - Patient has history of coronary stent - Continue ASA 81mg PO daily - Continue atorvastatin 40mg PO daily Hyperlipidemia - Continue atorvastatin as above Hiatal hernia - Noted on imaging in ED as well as previous to admission - Continue pantoprazole 40mg PO BID Hypothyroidism - TSH today 0.953 - Continue levothyroxine 50mcg PO daily FENGI: Heart healthy DVT ppx: ASA 81mg PO daily Dispo: Admit for observation to med/surg Code Status: Conditional Code (No chest compressions, no defibrillation; yes to invasive airway and ventilation) (2) Anxiety: (3) Hyperlipidemia: (4) Stented coronary artery: (5) Coronary artery disease: (6) Hypothyroidism: History of Present Illness Chief Complaint: Weakness, fatigue Primary Care Provider: Julio Hyman MD Terri Squires is a 80-year-old female with past medical history of CAD w/ stent, HTN, HLD, anxiety, and mild cognitive impairment who presented with complaints of feeling weak & tired for several weeks. She also states that she has been very "weepy"--crying a lot but doesn't know why. When asked if she feels she is depressed she states that she has no reason to be sad, as she has family and grandchildren that visit her, which makes her happy. Despite this, she says, she cries a lot and just feels like she does not want to be a burden on her family. She mentions that she used to take care of everyone around her but now feels they need to take care of her and that makes her sad and anxious. She also expressed that sometimes she feels like "it would be better if I was gone". When I asked her if she's ever seen a psychiatrist she mentions that she has not liked the idea in the past because she does not want doctors to think she does not "have control" of herself. Alvarado said that when asked how her mood is doing she has told doctors that she is doing well because she doesn't want them to think there's something wrong with her. Her [id number], Ariana Squires states that Terri used to be very active and that she would drive a golf cart around her community, visit her daughter who lives up the street, and walk around her neighborhood for exercise. However, since about [place] she has been crying a lot, less active, not eating much. Concerns for this were addressed at an outpatient visit with her PCP on 11/26/20. Decreased Effecor from 75mg to 50mg and started buspirone 5-10mg q8h prn for anxiety. They discussed referral to psychiatry but unclear if she was referred. Has not seen psychiatrist before. Patient's only other symptoms that she mentions on ROS are epigastric abdominal discomfort, especially notable when she eats spicy food, and some constipation for the past two days. She has a history remarkable for large hiatal hernia seen on imaging. Denies fever, chills, n/v, diarrhea, bloody stools, food getting stuck in esophagus, cough, SOB, CP, palp, neurologic deficits. Was treated for UTI from 11/29-12/04 with nitrofurantoin due to urinary frequency/urgency. She denies dysuria, frequency or urgency today. In ED, CBC & BMP were unremarkable. She had a negative Head CT. CXR was only remarkable for large hiatal hernia. Abd/Pelvic CT was remarkable for hiatal hernia as well as some constipation. UA with trace leukocyte esterase, trace ketones, trace blood, 5-10 WBC, negative for nitrates. Allergies Allergy/AdvReac Type Severity Reaction Status Date / Time ramipril [From Altace] Allergy Mild Cough Verified 12/16/20 15:59 adhesive Allergy Unknown SOME TAPE Verified 12/16/20 15:59 RASH PAPER OK codeine Allergy Unknown UNKNOWN Verified 12/16/20 15:59 Home Medications Medication Instructions Recorded Confirmed Type aspirin 81 mg tablet,delayed 81 mg PO DAILY #90 tab 12/02/19 12/20/20 Rx release atorvastatin 40 mg tablet 40 mg PO DAILY #90 tab 12/02/19 12/20/20 Rx acetaminophen 500 mg capsule 500 mg PO Q6H PRN 01/18/20 12/20/20 History nitroglycerin 0.4 mg sublingual 0.4 mg SL Q5M PRN 01/18/20 12/20/20 History tablet cholecalciferol (vitamin D3) 50 2,000 units PO DAILY #30 tab 01/19/20 12/20/20 Rx mcg (2,000 unit) tablet pantoprazole 40 mg tablet,delayed 40 mg PO BID #180 tab 05/06/20 12/20/20 Rx release levothyroxine 50 mcg tablet 50 mcg PO DAILY #90 tab 10/25/20 12/20/20 Rx melatonin 3 mg capsule 3 mg PO HS PRN 11/28/20 12/20/20 History naproxen sodium 220 mg tablet 220 mg PO BID PRN 11/28/20 12/20/20 History cyanocobalamin (vitamin B-12) 1,000 mcg PO DAILY #30 cap 12/19/20 12/20/20 Rx sertraline 25 mg PO DAILY #30 tab 12/19/20 12/20/20 Rx venlafaxine 37.5 mg PO DAILY@0800 #3 tab 12/19/20 12/20/20 Rx Past Med/Surg History Medical History (Updated 12/20/20 @ 00:04 by Background Daanushka) Anemia Anemia Chest pain Chest pain Chest tightness or pressure (03/31/14) Hyperlipidemia Hypertension Low back pain Restless leg syndrome Salmonella Surgical History S/P cholecystectomy S/P hysterectomy Family History Aunt Breast cancer Grandmother Breast cancer Mother Colorectal cancer Ovarian cancer Gallbladder disease Father Prostate cancer Diabetes Denies family history of Myocardial infarction Social History Smoking Status: Never smoker Cigarettes Per Day: maybe 2 a week; Second Hand Exposure: No; Hx Alcohol Use: No Hx Substance Use: No Preferred Language: Cymraes Communication Ability: Effective Visual Impairment: No Limitations Hearing Ability: Normal 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 Beliefs That Will Affect Care: None marital status: Current Living Situation: Spouse current occupational status: other current occupation: homemaker Feels Safe at Home: Yes Childhood Exposure to Second-Hand Smoke: Yes caffeine: No during the past year weight has: remained stable Dental Care, Regularly: Yes Physical Activity Frequency: Daily Seatbelt Use: always Sunscreen Use: Yes Assistive Devices: None Review of Systems Review of Systems: All systems reviewed & are unremarkable except as noted in HPI & below Constitutional: + fatigue and + weakness Gastrointestinal: + abdominal pain (epigastric) and + constipation Physical Exam Physical Exam: GENERAL: Cooperative, NAD. HEENT: PERRL, EOMI. Moist mucous membranes. NECK: No JVD. No lymphadenopathy. CHEST/LUNGS: CTAB A/P. No crackles, wheezes, rales, rhonchi. HEART: RRR. No m/g/r. No carotid bruits. ABDOMEN: NT/ND, soft. BS+ x4 EXTREMITIES: No cyanosis, no clubbing, no edema SKIN: Warm and dry. No rashes or lesions. PSYCHIATRIC: Euthymic affect, no SI, no pressured speech, no hallucinations. Expresses she feels it'd be better if she wasn't around. NEUROLOGIC: The patient has 5/5 strength x4 extremities. Sensation intact. CN II-XII grossly intact. Results & Data Results & Data ([facility]) Vital Signs (Past 12 Hours) Vital Signs Temp Pulse Pulse Resp BP BP Pulse Ox 12/16/20 18:50 72 22 96 12/16/20 18:40 68 20 12/16/20 18:31 70 19 96 12/16/20 18:30 69 17 175/82 H 95 12/16/20 18:27 83 20 12/16/20 18:10 80 19 12/16/20 18:01 67 20 12/16/20 18:00 69 19 171/82 H 12/16/20 17:50 65 21 12/16/20 17:40 68 17 12/16/20 17:31 76 18 12/16/20 17:30 67 19 148/88 H 12/16/20 17:22 75 12 95 12/16/20 17:13 96 12/16/20 16:50 83 19 94 12/16/20 16:40 66 18 95 12/16/20 16:31 66 21 95 12/16/20 16:30 67 19 135/71 95 12/16/20 16:20 71 21 95 12/16/20 16:10 86 20 96 12/16/20 16:01 69 19 95 12/16/20 16:00 69 21 158/76 H 94 12/16/20 15:57 85 20 94 12/16/20 15:40 69 22 12/16/20 15:31 71 24 12/16/20 15:30 70 22 156/75 H 12/16/20 15:20 133 H 12/16/20 15:10 67 21 96 12/16/20 15:01 68 22 96 12/16/20 15:00 67 22 159/68 H 96 12/16/20 14:59 67 22 161/71 H 96 12/16/20 14:56 36.5 C 70 71 22 122/59 L 150/88 H 96 12/16/20 14:51 99 12/16/20 14:50 71 21 12/16/20 14:49 71 23 150/81 H 12/16/20 14:40 71 23 12/16/20 14:30 80 24 12/16/20 14:22 160/79 H 12/16/20 13:32 35.5 C L 100 H 20 143/85 H 95 Supervising Physician Co-Signing Physician Notes I personally saw and examined the patient. I verified all martinez points and agree with Resident Physician Dr Pichardo with the following exceptions and/or additions: 80 year old female with progressive worsening mood and isolation from family. Good insight as she feels she should be happier given her current external factors however also feels she should be able to just make herself happy and almeida sn't want her family to see her like this. Recent MMSE 26/30 with good recollection therefore suspect her prior memory deficits linked to her low mood. Regarding hiatal hernia she reports very occasional food getting stuck relieved with water. She is not concerned about this and does not feel it significantly effects her appetite. O/E no focal neuropathy, Euthymic mood, Chest CTAB, HS 1+2, no murmurs, Abdo - SNT, BS +ve A/P Major depressive episode - effexor no longer effective and unable to increase without side effects. Gradual switch to SSRI recommended but will consult psychiatry to assist with care. Discussed with patient importance of not self isolating as this is likely making her mood much worse. Hiatal hernia - this is effecting her eating but she reports not significant and she does not think this contributing towards her mood. Adverse effect of medication - avoid donepezil given dyspepsia related to this. Resident Activity Tracking Resident Involvement: Resident Care Provided Care Provided: Adult Hospital Medicine (1) Hyperlipidemia Hyperlipidemia type: mixed hyperlipidemia Qualified Code(s): E78.2 - Mixed hyperlipidemia
[2020-12-16] MEDS ORDERED: MAGNESIUM HYDROXIDE SUSP 30 ML UDC PO PRN (21:59)
[2020-12-16] MEDS ORDERED: POLYETHYLENE (MIRALAX) 17 GM PACK PO PRN (21:59)
[2020-12-16] MEDS ORDERED: busPIRone 5 MG TAB PO PRN (21:59)
[2020-12-16] MEDS ORDERED: ALUMINUM/MAGNESIUM SUSP 30 ML UDC PO PRN (21:59)
[2020-12-16] MEDS ORDERED: NITROGLYCERIN SL 0.4 MG/TAB TAB SL PRN (21:59)
[2020-12-16] MEDS ORDERED: MELATONIN 3 MG TAB PO PRN (22:06)
[2020-12-16] MEDS ORDERED: NAPROXEN 250 MG TAB PO PRN (22:07)
[2020-12-16] MEDS: PANTOprazole 40 MG TAB PO SCH (22:40)
--- NOTE | 2020-12-16 23:05 | Emergency Department Note ---
Impression & Plan Acute alteration in mental status, Anxiety, Weight loss ED Provider Note NAME: LOU SIERRA AGE: 80 SEX: F ARRIVES VIA: Walk-In INFORMANT: Patient ED PROVIDER(S): Brittney Muñiz MD CHIEF COMPLAINT: AMS PLAN: Disposition: Admission Condition: Good Referral: Hospitalist MEDICAL DECISION MAKING: This pt was evaluated and appeared to be anxious but in no distress. IV access was obtained and lab work was drawn. Pt was hydrated with NSS, given IV zofran for nausea. EKG reveals no acute ischemia. An order for cardiac monitoring was placed and the pt is noted to be in a NSR at 71 bpm. Lab work was reassuring, COVID swab was negative. CT head was performed and was negative for acute abnl. CXR revealed a large hiatal hernia. CT AP reveals large hiatal hernia and moderate constipation. Pt's daughter expressed concerns over the relatively sudden change in behaviors and frequent crying. Medication changes have not helped. Pt's case was d/w the hospitalist service for further management. Triage Nursing notes reviewed. Additional history obtained from family. Medical records reviewed. Vital Signs: reviewed and remarkable for no significant abnormalities. Differential diagnosis: Infection, dehydration, metabolic abnormality, hypo/hyperglycemia, electrolyte disturbance, anemia, hypoxia, cardiac sources, intracerebral event, toxicologic, neurologic, as well as other pathologies. ER treatment provided: IV NSS IV zofran Diagnostics interpreted by me: ECG: NSR at 73 bpm, nonspecific ST abnl, no PVC, no PAC, normal axis. Cardiac Monitoring: An order for cardiac monitoring was placed and the pt is noted to be in a NSR at 71 bpm. Laboratory studies: See below Imaging studies: XR chest 1V portable HISTORY: weakness COMPARISON: Chest 05/21/2017. FINDINGS: No pneumothorax. No pleural effusions. The heart is normal in size. A left coronary artery stent is noted. The lungs are clear. No evidence for pulmonary edema. There is a large hiatus hernia, unchanged. IMPRESSION: 1. No acute process within the chest. 2. Large hiatus hernia is again noted. ACT 112: Negative or not required by law. Electronically signed by: Blake Obando M.D. 12/16/2020 3:01 PM Dictated: 12/16/20 1458Transcribed: 12/16/[address] SCAN OF THE BRAIN WITHOUT IV CONTRAST CLINICAL HISTORY: Change in mental status. COMPARISON STUDY: MRI of the brain dated 01/25/2020. TECHNIQUE: Unenhanced axial CT scan of the brain is performed from the vertex to the skull base. A dose lowering technique was utilized adhering to the principles of ALARA. CT DOSE: 537.48 mGy.cm FINDINGS: Brain parenchyma: There are age-related involutional changes noting mild to moderate subcortical and periventricular microangiopathic change. There is no hemorrhage, mass effect, or evidence of acute territorial ischemia by CT criteria. Mullins-white matter differentiation is preserved. No extra-axial fluid collection is seen. Ventricles, sulci, cisterns: Prominent secondary to involutional change. Intracranial vasculature: There is atherosclerotic calcification of the cavernous carotid and vertebral arteries. Calvarium: Unremarkable. Sinuses and mastoids: The visualized paranasal sinuses are clear. The mastoid air cells are well pneumatized. Orbits: The bony orbits are grossly intact. There are bilateral ocular lens implants. IMPRESSION: There is no hemorrhage, mass effect, or evidence of acute territorial ischemia by CT criteria. ACT 112: Negative or not required by law. Electronically signed by: Andrez Niño M.D. 12/16/2020 5:18 PM Dictated: 12/16/201715Transcribed: 12/16/201715 CT SCAN OF THE ABDOMEN AND PELVIS WITH IV CONTRAST CLINICAL HISTORY: Epigastric abdominal pain. Abdominal fullness. COMPARISON STUDY: Abdominal ultrasound dated 07/09/2014. TECHNIQUE: Following the IV administration of 94 cc of Optiray 320, CT scan of the abdomen and pelvis is performed from the lung bases to the proximal femora. Images are reviewed in the axial, sagittal, and coronal planes. IV contrast was administered without complication. A dose lowering technique was utilized adhering to the principles of ALARA. CT DOSE: 262.96 mGy.cm FINDINGS: Lung bases: The heart is normal in size and without pericardial effusion. The coronary arteries are densely calcified. The lung bases are clear noting bibasilar scarring/atelectasis. There is a large hiatal hernia, with the majority of the stomach located in the thoracic cavity. Liver: The contrast-enhanced liver is normal in size, contour, and attenuation. Fatty infiltration is seen adjacent to falciform ligament. There is mild intrahepatic biliary ductal dilatation. The hepatic veins and portal veins are patent. Gallbladder: Surgically absent noting clips in the gallbladder fossa. Spleen: Normal in size and attenuation. Pancreas: Unremarkable. Adrenal glands: Unremarkable. Kidneys: The contrast enhanced kidneys demonstrate mild cortical atrophy and are without hydronephrosis. The kidneys enhance symmetrically. Scattered subcentimeter cortical hypodensities likely represent cysts but are too small for definitive characterization. Abdominal vasculature: The abdominal aorta is normal in course and caliber noting advanced atherosclerotic calcification. Bowel: There is rectosigmoid fecal retention and moderate constipation. No bowel obstruction is seen. There is moderate colonic diverticulosis without CT evidence of acute diverticulitis. The appendix is well-visualized and normal. Peritoneum: There is no intraperitoneal free air or abdominal ascites. Lymphadenopathy: None. Pelvic viscera: The bladder is normal as visualized. The uterus is surgically absent. No adnexal lesion is seen. Skeletal structures: The skeletal structures are osteopenic. Mild to moderate lumbosacral spondylosis and scoliosis are observed. No lytic or blastic lesions are seen. IMPRESSION: 1. There are no acute infectious or inflammatory findings in the abdomen or pelvis. 2. Large hiatal hernia, with the majority of the stomach located in the thoracic cavity. 3. There is rectosigmoid fecal retention and moderate constipation. 4. Colonic diverticulosis without CT evidence of acute diverticulitis. 5. Advanced coronary artery calcification. 6. Additional findings as above. ACT 112: Positive. There are findings on this exam that require communication between the performing entity and the patient following Patient Test Result Information Act ([place] Act 112) guidelines. Electronically signed by: Andrez Niño M.D. 12/16/2020 5:26 PM Dictated: 12/16/201718 Transcribed: 12/16/201718 Consultation(s): hospitalists HPI: 80/F arrives for evaluation of change in mental status. Per pt she is "emotional" quite often, but family states she has been losing weight, eating less, ROS: See above HPI for pertinent positives & negatives. A total of 10 systems reviewed and were otherwise negative. PAST MEDICAL HISTORY:See Below PAST SURGICAL HISTORY:See Below FAMILY HISTORY:See Below SOCIAL HISTORY:See Below HOME MEDICATIONS:See Below ALLERGIES:See Below PHYSICAL EXAMINATION: Vital signs reviewed. General: Elderly 80 yo female, tearful but anxious. HEENT: No scleral icterus, PERRLA, neck supple. . Cardiovascular: Regular rate and rhythm, no extra sounds. Pulmonary: Clear to auscultation bilaterally, normal work of breathing. Abdomen: Soft, nontender, nondistended, positive bowel sounds. Musculoskeletal: Atraumatic, no peripheral edema. Neurologic: Patient awake alert and somewhat confused/tearful, unable to recall recent events, full strength in all 4 extremities. Cranial nerves 2 through 12 grossly intact. Skin: Warm, dry, no rash Brittney Muñiz MD Past Med/Surg History Medical History (Updated 12/16/20 @ 23:04 by Brittney Muñiz MD) Anemia Anemia Chest pain Chest pain Chest tightness or pressure (03/31/14) Cognitive impairment Hyperlipidemia Hypertension Low back pain Restless leg syndrome Salmonella Surgical History S/P cholecystectomy S/P hysterectomy Family History Aunt Breast cancer Grandmother Breast cancer Mother Colorectal cancer Ovarian cancer Gallbladder disease Father Prostate cancer Diabetes Denies family history of Myocardial infarction Social History Smoking Status: Never smoker Cigarettes Per Day: maybe 2 a week; Second Hand Exposure: No; Hx Alcohol Use: No Hx Substance Use: No Preferred Language: Belarusian Communication Ability: Effective Visual Impairment: No Limitations Hearing Ability: Normal Resin Shaver Required: No Beliefs That Will Affect Care: None marital status: Current Living Situation: Spouse current occupational status: other current occupation: homemaker Other Information That Helps Us Care for You: No Feels Safe at Home: Yes Safety Concerns: Feels Safe At This Time Childhood Exposure to Second-Hand Smoke: Yes caffeine: No during the past year weight has: remained stable Dental Care, Regularly: Yes Physical Activity Frequency: Daily Seatbelt Use: always Sunscreen Use: Yes Assistive Devices: None Allergies Allergies Allergy/AdvReac Type Severity Reaction Status Date / Time ramipril [From Altace] Allergy Mild Cough Verified 12/16/20 15:59 adhesive Allergy Unknown SOME TAPE Verified 12/16/20 15:59 RASH PAPER [place] codeine Allergy Unknown UNKNOWN Verified 12/16/20 15:59 Home Meds Home Medications Medication Instructions Recorded Confirmed acetaminophen 500 mg capsule 500 mg PO Q6H PRN 01/18/20 12/16/20 nitroglycerin 0.4 mg sublingual 0.4 mg SL Q5M PRN 01/18/20 12/16/20 tablet melatonin 3 mg capsule 3 mg PO HS PRN 11/28/20 12/16/20 naproxen sodium 220 mg tablet 220 mg PO BID PRN 11/28/20 12/16/20 Previous Rx's Medication Instructions Recorded aspirin 81 mg tablet,delayed 81 mg PO DAILY #90 tab 12/02/19 release atorvastatin 40 mg tablet 40 mg PO DAILY #90 tab 12/02/19 cholecalciferol (vitamin D3) 50 2,000 units PO DAILY #30 tab 01/19/20 mcg (2,000 unit) tablet pantoprazole 40 mg tablet,delayed 40 mg PO BID #180 tab 05/06/20 release levothyroxine 50 mcg tablet 50 mcg PO DAILY #90 tab 10/25/20 buspirone 10 mg tablet See Rx Instructions PO TID PRN #60 11/28/20 tab venlafaxine 50 mg tablet 50 mg PO DAILY #30 tab 11/28/20 Results & Data (ED) Vital Signs Vital Signs - 24 hr 12/16/20 13:32 12/16/20 14:22 12/16/20 14:30 Temperature 35.5 C L Temperature Source Temporal Artery Scan Pulse Rate - Lying Pulse Rate - Sitting Pulse Rate - Standing Pulse Rate 100 H 80 Pulse Rate [Apical] Pulse Rate from SpO2 Sensor Respiratory Rate 20 24 Respiratory Effort / Characteristics Non-Labored Respiratory Depth Normal Blood Pressure - Lying Blood Pressure - Sitting Blood Pressure- Standing Blood Pressure 143/85 H 160/79 H Blood Pressure [Left Arm] Blood Pressure Mean 104 108 Blood Pressure Mean [Left Arm] Pulse Oximetry 95 Oxygen Delivery Method Room Air Sepsis Recent Fever Within 48 Hours No Sepsis New/Unexplained Change in Mental Status N/A Sepsis Action Taken by Nursing No Action Required 12/16/20 14:40 12/16/20 14:49 12/16/20 14:50 Temperature Temperature Source Pulse Rate - Lying Pulse Rate - Sitting Pulse Rate - Standing Pulse Rate 71 71 71 Pulse Rate [Apical] Pulse Rate from SpO2 Sensor Respiratory Rate 23 23 21 Respiratory Effort / Characteristics Respiratory Depth Blood Pressure - Lying Blood Pressure - Sitting Blood Pressure- Standing Blood Pressure 150/81 H Blood Pressure [Left Arm] Blood Pressure Mean 93 Blood Pressure Mean [Left Arm] Pulse Oximetry Oxygen Delivery Method Sepsis Recent Fever Within 48 Hours Sepsis New/Unexplained Change in Mental Status Sepsis Action Taken by Nursing 12/16/20 14:51 12/16/20 14:56 12/16/20 14:58 Temperature 36.5 C Temperature Source Oral Pulse Rate - Lying 77 Pulse Rate - Sitting 79 Pulse Rate - Standing 80 Pulse Rate 70 Pulse Rate [Apical] 71 Pulse Rate from SpO2 Sensor 71 Respiratory Rate 22 Respiratory Effort / Characteristics Respiratory Depth Blood Pressure - Lying 150/88 H Blood Pressure - Sitting 161/70 H Blood Pressure- Standing 159/68 H Blood Pressure 122/59 L Blood Pressure [Left Arm] 150/88 H Blood Pressure Mean 84 Blood Pressure Mean [Left Arm] 108 Pulse Oximetry 99 96 Oxygen Delivery Method Room Air Room Air Sepsis Recent Fever Within 48 Hours Sepsis New/Unexplained Change in Mental Status Sepsis Action Taken by Nursing 12/16/20 14:59 12/16/20 15:00 12/16/20 15:01 Temperature Temperature Source Pulse Rate - Lying Pulse Rate - Sitting Pulse Rate - Standing Pulse Rate 67 67 68 Pulse Rate [Apical] Pulse Rate from SpO2 Sensor 67 68 69 Respiratory Rate 22 22 22 Respiratory Effort / Characteristics Respiratory Depth Blood Pressure - Lying Blood Pressure - Sitting Blood Pressure- Standing Blood Pressure 161/71 H 159/68 H Blood Pressure [Left Arm] Blood Pressure Mean 87 91 Blood Pressure Mean [Left Arm] Pulse Oximetry 96 96 96 Oxygen Delivery Method Sepsis Recent Fever Within 48 Hours Sepsis New/Unexplained Change in Mental Status Sepsis Action Taken by Nursing 12/16/20 15:10 12/16/20 15:20 12/16/20 15:30 Temperature Temperature Source Pulse Rate - Lying Pulse Rate - Sitting Pulse Rate - Standing Pulse Rate 67 133 H 70 Pulse Rate [Apical] Pulse Rate from SpO2 Sensor 68 Respiratory Rate 21 22 Respiratory Effort / Characteristics Respiratory Depth Blood Pressure - Lying Blood Pressure - Sitting Blood Pressure- Standing Blood Pressure 156/75 H Blood Pressure [Left Arm] Blood Pressure Mean 96 Blood Pressure Mean [Left Arm] Pulse Oximetry 96 Oxygen Delivery Method Sepsis Recent Fever Within 48 Hours Sepsis New/Unexplained Change in Mental Status Sepsis Action Taken by Nursing 12/16/20 15:31 12/16/20 15:40 12/16/20 15:57 Temperature Temperature Source Pulse Rate - Lying Pulse Rate - Sitting Pulse Rate - Standing Pulse Rate 71 69 85 Pulse Rate [Apical] Pulse Rate from SpO2 Sensor 80 Respiratory Rate 24 22 20 Respiratory Effort / Characteristics Respiratory Depth Blood Pressure - Lying Blood Pressure - Sitting Blood Pressure- Standing Blood Pressure Blood Pressure [Left Arm] Blood Pressure Mean Blood Pressure Mean [Left Arm] Pulse Oximetry 94 Oxygen Delivery Method Sepsis Recent Fever Within 48 Hours Sepsis New/Unexplained Change in Mental Status Sepsis Action Taken by Nursing 12/16/20 16:00 12/16/20 16:01 12/16/20 16:10 Temperature Temperature Source Pulse Rate - Lying Pulse Rate - Sitting Pulse Rate - Standing Pulse Rate 69 69 86 Pulse Rate [Apical] Pulse Rate from SpO2 Sensor 69 69 83 Respiratory Rate 21 19 20 Respiratory Effort / Characteristics Respiratory Depth Blood Pressure - Lying Blood Pressure - Sitting Blood Pressure- Standing Blood Pressure 158/76 H Blood Pressure [Left Arm] Blood Pressure Mean 107 Blood Pressure Mean [Left Arm] Pulse Oximetry 94 95 96 Oxygen Delivery Method Sepsis Recent Fever Within 48 Hours Sepsis New/Unexplained Change in Mental Status Sepsis Action Taken by Nursing 12/16/20 16:20 12/16/20 16:30 12/16/20 16:31 Temperature Temperature Source Pulse Rate - Lying Pulse Rate - Sitting Pulse Rate - Standing Pulse Rate 71 67 66 Pulse Rate [Apical] Pulse Rate from SpO2 Sensor 70 68 66 Respiratory Rate 21 19 21 Respiratory Effort / Characteristics Respiratory Depth Blood Pressure - Lying Blood Pressure - Sitting Blood Pressure- Standing Blood Pressure 135/71 Blood Pressure [Left Arm] Blood Pressure Mean 90 Blood Pressure Mean [Left Arm] Pulse Oximetry 95 95 95 Oxygen Delivery Method Sepsis Recent Fever Within 48 Hours Sepsis New/Unexplained Change in Mental Status Sepsis Action Taken by Nursing 12/16/20 16:40 12/16/20 16:50 12/16/20 17:13 Temperature Temperature Source Pulse Rate - Lying Pulse Rate - Sitting Pulse Rate - Standing Pulse Rate 66 83 Pulse Rate [Apical] Pulse Rate from SpO2 Sensor 66 78 76 Respiratory Rate 18 19 Respiratory Effort / Characteristics Respiratory Depth Blood Pressure - Lying Blood Pressure - Sitting Blood Pressure- Standing Blood Pressure Blood Pressure [Left Arm] Blood Pressure Mean Blood Pressure Mean [Left Arm] Pulse Oximetry 95 94 96 Oxygen Delivery Method Sepsis Recent Fever Within 48 Hours Sepsis New/Unexplained Change in Mental Status Sepsis Action Taken by Nursing 12/16/20 17:22 12/16/20 17:30 12/16/20 17:31 Temperature Temperature Source Pulse Rate - Lying Pulse Rate - Sitting Pulse Rate - Standing Pulse Rate 75 67 76 Pulse Rate [Apical] Pulse Rate from SpO2 Sensor 78 Respiratory Rate 12 19 18 Respiratory Effort / Characteristics Respiratory Depth Blood Pressure - Lying Blood Pressure - Sitting Blood Pressure- Standing Blood Pressure 148/88 H Blood Pressure [Left Arm] Blood Pressure Mean 116 Blood Pressure Mean [Left Arm] Pulse Oximetry 95 Oxygen Delivery Method Sepsis Recent Fever Within 48 Hours Sepsis New/Unexplained Change in Mental Status Sepsis Action Taken by Nursing 12/16/20 17:40 12/16/20 17:50 12/16/20 18:00 Temperature Temperature Source Pulse Rate - Lying Pulse Rate - Sitting Pulse Rate - Standing Pulse Rate 68 65 69 Pulse Rate [Apical] Pulse Rate from SpO2 Sensor Respiratory Rate 17 21 19 Respiratory Effort / Characteristics Respiratory Depth Blood Pressure - Lying Blood Pressure - Sitting Blood Pressure- Standing Blood Pressure 171/82 H Blood Pressure [Left Arm] Blood Pressure Mean 109 Blood Pressure Mean [Left Arm] Pulse Oximetry Oxygen Delivery Method Sepsis Recent Fever Within 48 Hours Sepsis New/Unexplained Change in Mental Status Sepsis Action Taken by Nursing 12/16/20 18:01 12/16/20 18:10 12/16/20 18:27 Temperature Temperature Source Pulse Rate - Lying Pulse Rate - Sitting Pulse Rate - Standing Pulse Rate 67 80 83 Pulse Rate [Apical] Pulse Rate from SpO2 Sensor Respiratory Rate 20 19 20 Respiratory Effort / Characteristics Respiratory Depth Blood Pressure - Lying Blood Pressure - Sitting Blood Pressure- Standing Blood Pressure Blood Pressure [Left Arm] Blood Pressure Mean Blood Pressure Mean [Left Arm] Pulse Oximetry Oxygen Delivery Method Sepsis Recent Fever Within 48 Hours Sepsis New/Unexplained Change in Mental Status Sepsis Action Taken by Nursing 12/16/20 18:30 12/16/20 18:31 12/16/20 18:40 Temperature Temperature Source Pulse Rate - Lying Pulse Rate - Sitting Pulse Rate - Standing Pulse Rate 69 70 68 Pulse Rate [Apical] Pulse Rate from SpO2 Sensor 69 70 Respiratory Rate 17 19 20 Respiratory Effort / Characteristics Respiratory Depth Blood Pressure - Lying Blood Pressure - Sitting Blood Pressure- Standing Blood Pressure 175/82 H Blood Pressure [Left Arm] Blood Pressure Mean 116 Blood Pressure Mean [Left Arm] Pulse Oximetry 95 96 Oxygen Delivery Method Sepsis Recent Fever Within 48 Hours Sepsis New/Unexplained Change in Mental Status Sepsis Action Taken by Nursing 12/16/20 18:50 12/16/20 19:00 12/16/20 19:30 Temperature Temperature Source Pulse Rate - Lying Pulse Rate - Sitting Pulse Rate - Standing Pulse Rate 72 74 75 Pulse Rate [Apical] Pulse Rate from SpO2 Sensor 72 Respiratory Rate 22 16 16 Respiratory Effort / Characteristics Respiratory Depth Blood Pressure - Lying Blood Pressure - Sitting Blood Pressure- Standing Blood Pressure 166/80 H 148/71 H Blood Pressure [Left Arm] Blood Pressure Mean 114 87 Blood Pressure Mean [Left Arm] Pulse Oximetry 96 96 95 Oxygen Delivery Method Room Air Room Air Sepsis Recent Fever Within 48 Hours Sepsis New/Unexplained Change in Mental Status Sepsis Action Taken by Nursing 12/16/20 19:31 Temperature Temperature Source Pulse Rate - Lying Pulse Rate - Sitting Pulse Rate - Standing Pulse Rate 72 Pulse Rate [Apical] Pulse Rate from SpO2 Sensor 73 Respiratory Rate 19 Respiratory Effort / Characteristics Respiratory Depth Blood Pressure - Lying Blood Pressure - Sitting Blood Pressure- Standing Blood Pressure Blood Pressure [Left Arm] Blood Pressure Mean Blood Pressure Mean [Left Arm] Pulse Oximetry 95 Oxygen Delivery Method Sepsis Recent Fever Within 48 Hours Sepsis New/Unexplained Change in Mental Status Sepsis Action Taken by Jail Medications Current Medication List: was personally reviewed by me Laboratory Data Attestation: I reviewed the patient's lab results. Result diagrams: 12/16/20 14:44 12/16/20 16:06 Lab Results 12/16/20 12/16/20 12/16/20 Range/Units 14:44 14:44 16:06 WBC 6.21 (4.8-10.8) K/uL RBC 4.59 (4.2-5.4) M/uL Hgb 15.4 (12.0-16.0) g/dL Hct 44.7 (37-47) % MCV 97.4 (80-100) fL MCH 33.6 (25-34) pg MCHC 34.5 (32-36) g/dL RDW Std Deviation 45.7 (36.4-46.3) fL RDW Coeff of Tiana 13.0 (11.5-14.5) % Plt Count 162 (130-400) K/uL MPV 9.1 (7.4-10.4) fL Immature Gran % (Auto) 0.2 % Neut % (Auto) 78.6 % Lymph % (Auto) 14.0 % [place] % (Auto) 6.6 % Eos % (Auto) 0.3 % Baso % (Auto) 0.3 % Neut # (Auto) 4.88 (1.4-6.5) K/uL Lymph # (Auto) 0.87 L (1.2-3.4) K/uL [place] # (Auto) 0.41 (0.11-0.59) K/uL Eos # (Auto) 0.02 (0-0.5) K/uL Baso # (Auto) 0.02 (0-0.2) K/uL Immature Gran # (Auto) 0.01 (0.00-0.02) K/uL Sodium 143 (136-145) mmol/L Potassium 3.6 (3.5-5.1) mmol/L Chloride 110 H (98-107) mmol/L Carbon Dioxide 29 (21-32) mmol/L Anion Gap 4.0 (3-11) BUN 10 (7-18) mg/dl Creatinine 0.68 (0.6-1.2) mg/dl Est Cr Clr Drug Dosing 55.5 ml/min Est GFR ( Amer) 96.4 Est GFR (Non-Af Amer) 83.2 BUN/Creatinine Ratio 14.5 (10-20) Glucose 111 H (70-99) mg/dl Calcium 9.1 (8.5-10.1) mg/dl Magnesium 2.2 (1.8-2.4) mg/dl Total Bilirubin 0.8 (0.2-1) mg/dl AST 10 L (15-37) U/L ALT 25 (12-78) U/L Alkaline Phosphatase 94 (45-117) U/L Troponin I < 0.015 (0-0.045) ng/ml Total Protein 6.9 (6.4-8.2) gm/dl Albumin 3.9 (3.4-5.0) gm/dl Globulin 3.0 (2.5-4.0) gm/dl Albumin/Globulin Ratio 1.3 (0.9-2) TSH 0.953 (0.300-4.500) uIu/ml Urine Color Urine Appearance (Clear) Urine pH (4.5-7.5) Ur Specific [place] (1.000-1.030) Urine Protein (Negative) Urine Glucose (UA) (Negative) Urine Ketones (Negative) Urine Blood (Negative) Urine Nitrite (Negative) Urine Bilirubin (Negative) Urine Urobilinogen (Negative) Ur Leukocyte Esterase (Negative) Urine WBC (Auto) (0-5) /hpf Urine RBC (Auto) (0-4) /hpf U Hyaline Cast (Auto) (0-5) /lpf U Epithel Cells (Auto) (0-5) /lpf Urine Bacteria (Auto) (Negative) COVID-19 Eval Order SARS-CoV-2, RNA, NAAT (NEGATIVE) 12/16/20 12/16/20 12/16/20 Range/Units 16:47 16:47 18:03 WBC (4.8-10.8) K/uL RBC (4.2-5.4) M/uL Hgb (12.0-16.0) g/dL Hct (37-47) % MCV (80-100) fL MCH (25-34) pg MCHC (32-36) g/dL RDW Std Deviation (36.4-46.3) fL RDW Coeff of Tiana (11.5-14.5) % Plt Count (130-400) K/uL MPV (7.4-10.4) fL Immature Gran % (Auto) % Neut % (Auto) % Lymph % (Auto) % [place] % (Auto) % Eos % (Auto) % Baso % (Auto) % Neut # (Auto) (1.4-6.5) K/uL Lymph # (Auto) (1.2-3.4) K/uL [place] # (Auto) (0.11-0.59) K/uL Eos # (Auto) (0-0.5) K/uL Baso # (Auto) (0-0.2) K/uL Immature Gran # (Auto) (0.00-0.02) K/uL Sodium (136-145) mmol/L Potassium (3.5-5.1) mmol/L Chloride (98-107) mmol/L Carbon Dioxide (21-32) mmol/L Anion Gap (3-11) BUN (7-18) mg/dl Creatinine (0.6-1.2) mg/dl Est Cr Clr Drug Dosing ml/min Est GFR ( Amer) Est GFR (Non-Af Amer) BUN/Creatinine Ratio (10-20) Glucose (70-99) mg/dl Calcium (8.5-10.1) mg/dl Magnesium (1.8-2.4) mg/dl Total Bilirubin (0.2-1) mg/dl AST (15-37) U/L ALT (12-78) U/L Alkaline Phosphatase (45-117) U/L Troponin I (0-0.045) ng/ml Total Protein (6.4-8.2) gm/dl Albumin (3.4-5.0) gm/dl Globulin (2.5-4.0) gm/dl Albumin/Globulin Ratio (0.9-2) TSH (0.300-4.500) uIu/ml Urine Color Yellow Urine Appearance Clear (Clear) Urine pH 7.0 (4.5-7.5) Ur Specific [place] > 1.045 H (1.000-1.030) Urine Protein Negative (Negative) Urine Glucose (UA) Negative (Negative) Urine Ketones Trace H (Negative) Urine Blood Trace H (Negative) Urine Nitrite Negative (Negative) Urine Bilirubin Negative (Negative) Urine Urobilinogen Negative (Negative) Ur Leukocyte Esterase Trace H (Negative) Urine WBC (Auto) 5-10 H (0-5) /hpf Urine RBC (Auto) 0-4 (0-4) /hpf U Hyaline Cast (Auto) 1-5 (0-5) /lpf U Epithel Cells (Auto) 20-30 H (0-5) /lpf Urine Bacteria (Auto) Negative (Negative) COVID-19 Eval Order Covid19 IDNow [facility] SARS-CoV-2, RNA, NAAT NEGATIVE (NEGATIVE) Administered Medications Acetaminophen (Acetaminophen 325 Mg Tab) 650 mg PO Q4H PRN PRN Reason: pain/fever Stop: 01/15/21 21:58 Last Admin: 12/17/20 22:50 Dose: 650 mg Documented by: [id number] Admin: 12/17/20 00:23 Dose: 650 mg Documented by: [id number] Aspirin (Aspirin 81 Mg Ectab) 81 mg PO DAILY [facility] Stop: 01/16/21 08:59 Last Admin: 12/18/20 09:11 Dose: 81 mg Documented by: [id number] Admin: 12/17/20 08:31 Dose: 81 mg Documented by: [id number] Atorvastatin Calcium (Atorvastatin 40 Mg Tab) 40 mg PO DAILY [facility] Stop: 01/16/21 08:59 Last Admin: 12/18/20 09:11 Dose: 40 mg Documented by: [id number] Admin: 12/17/20 08:31 Dose: 40 mg Documented by: [id number] Levothyroxine Sodium (Levothyroxine Sodium 50 Mcg Tablet) 50 mcg PO DAILYBB [facility] Stop: 01/16/21 06:29 Last Admin: 12/18/20 06:05 Dose: 50 mcg Documented by: [id number] Admin: 12/17/20 05:52 Dose: 50 mcg Documented by: [id number] Ondansetron HCl (Ondansetron 4 Mg Od Tab) 4 mg PO Q6H PRN PRN Reason: Nausea Stop: 01/16/21 15:49 Last Admin: 12/18/20 09:13 Dose: 4 mg Documented by: [id number] Admin: 12/17/20 23:58 Dose: 4 mg Documented by: [id number] Admin: 12/17/20 16:06 Dose: 4 mg Documented by: [id number] Pantoprazole Sodium (Pantoprazole 40 Mg Tab) 40 mg PO BID [facility] Stop: 01/15/21 21:58 Last Admin: 12/18/20 09:10 Dose: 40 mg Documented by: [id number] Admin: 12/17/20 20:45 Dose: 40 mg Documented by: [id number] Admin: 12/17/20 08:31 Dose: 40 mg Documented by: [id number] Admin: 12/16/20 22:40 Dose: 40 mg Documented by: [id number] Sertraline HCl (Sertraline Hcl 50 Mg Tablet) 25 mg PO QAM [facility] Stop: 01/17/21 08:59 Last Admin: 12/18/20 09:10 Dose: 25 mg Documented by: [id number] Venlafaxine HCl (Venlafaxine Hcl 37.5 Mg Tab) 37.5 mg PO DAILY@0800 [facility]; Taper Stop: 12/22/20 07:59 Last Admin: 12/18/20 09:10 Dose: 37.5 mg Documented by: [id number] Vitamin D (Cholecalciferol 1,000 Units 25 Mcg Tab) 2,000 units PO DAILY [facility] Stop: 01/16/21 08:59 Last Admin: 12/18/20 09:11 Dose: 2,000 units Documented by: [id number] Admin: 12/17/20 08:31 Dose: 2,000 units Documented by: [id number] Discontinued Medications Buspirone HCl (Buspirone 5 Mg Tab) 10 mg PO TID PRN PRN Reason: anxiety Stop: 01/15/21 21:58 Last Admin: 12/17/20 08:31 Dose: 10 mg Documented by: [id number] Sodium Chloride (Nss 1000ml) 1,000 mls @ 125 mls/hr IV .Q8H [facility] Stop: 12/16/20 22:29 Last Infusion: 12/16/20 22:21 Dose: 0 mls/hr Documented by: [id number] Admin: 12/16/20 15:00 Dose: 125 mls/hr Documented by: [id number] Ioversol (Ioversol 100ml) 94 ml IV ONCE ONE Stop: 12/16/20 17:05 Last Admin: 12/16/20 17:04 Dose: 94 ml Documented by: [id number] Ondansetron HCl (Ondansetron Inj 2 Mg/Ml 2 Ml Vial) 4 mg IV NOW STA Stop: 12/16/20 14:26 Last Admin: 12/16/20 15:03 Dose: 4 mg Documented by: [id number] Venlafaxine HCl (Venlafaxine Hcl 50 Mg Tab) 50 mg PO DAILY [facility] Stop: 01/16/21 08:59 Last Admin: 12/17/20 08:31 Dose: 50 mg Documented by: [id number] Discharge Plan Visit Data Chief Complaint: Illness Stated Complaint: Emotional, losing weight, Just had UTI ED Provider: Brittney Muñiz Discharge Problem: Acute alteration in mental status, Anxiety, Weight loss Patient Disposition: Admitted As Inpatient Discharge Instructions Interventions: ED Discharge Assessment Last Done: 12/16/20 20:52
[2020-12-17] MEDS: ACETAMINOPHEN 325 MG TAB PO PRN ×2 (00:23→22:50)
[2020-12-17] MEDS: LEVOTHYROXINE SODIUM 50 MCG TABLET PO SCH (05:52)
--- NOTE | 2020-12-17 07:36 | Hospitalist Progress Note ---
Date of Service December 17, 2020 Assessment & Plan (1) Depression: 1. Depression/anxiety Continue current medications including Effexor 50 mg daily Buspirone added continue on as needed basis Review of outpatient notes show a most recent mini-mental status exam of 30, completed in the fall of 2019 Mild cognitive impairment noted by Neurology and her most recent outpatient evaluation October 2020 No obvious cause of infection, urine culture is currently pending. Appreciate psychiatry input. 2. CAD Patient has history of coronary stent Continue aspirin 81 mg Continue atorvastatin 40 mg daily 3. Hyperlipidemia continue atorvastatin 4. Hypothyroidism continue current medications Normal TSH 5. Hiatal hernia Continue pantoprazole FENGI: Heart healthy DVT ppx: ASA 81mg PO daily Dispo: Admit for observation to med/surg Code Status: Conditional Code (No chest compressions, no defibrillation; yes to invasive airway and ventilation) (2) Anxiety: (3) Hyperlipidemia: (4) Stented coronary artery: (5) Coronary artery disease: (6) Hypothyroidism: Admission and Anticipated Discharge Date Admission Date: December 16, 2020 Subjective No significant events overnight. Patient has little appetite at this time, will try crackers and liquids this morning. No fevers chills no nausea vomiting no chest pain Patient feels less weepy today No concerns from nursing staff. Review of Systems Review of Systems: All systems reviewed & are unremarkable except as noted in Subjective Physical Exam Physical Exam: Constitutional: WD/WN, vitals as above Respiratory: Effort normal, CTA B/L CV: RRR, no murmur, no edema Abdomen: normal bowel sounds, soft, nontender, no hepatosplenomegaly Results & Data Results & Data ([facility]) Vital Signs (Past 12 Hours) Vital Signs Temp Pulse Pulse Pulse Resp BP BP 12/17/20 00:11 36.8 C 61 14 127/68 12/16/20 21:59 36.5 C 93 H 16 112/75 12/16/20 20:30 68 17 149/66 H 12/16/20 20:00 59 L 19 146/63 H 12/16/20 19:50 64 19 12/16/20 19:49 77 16 133/82 12/16/20 19:48 74 16 133/82 12/16/20 19:40 62 20 Pulse Ox 12/17/20 00:11 94 12/16/20 21:59 94 12/16/20 20:30 97 12/16/20 20:00 94 12/16/20 19:50 95 12/16/20 19:49 99 12/16/20 19:48 96 12/16/20 19:40 94 Laboratory Results Laboratory Results - last 24 hr 12/16/20 12/16/20 12/16/20 14:44 14:44 16:06 WBC 6.21 RBC 4.59 Hgb 15.4 Hct 44.7 MCV 97.4 MCH 33.6 MCHC 34.5 RDW Std Deviation 45.7 RDW Coeff of Tiana 13.0 Plt Count 162 MPV 9.1 Immature Gran % (Auto) 0.2 Neut % (Auto) 78.6 Lymph % (Auto) 14.0 [place] % (Auto) 6.6 Eos % (Auto) 0.3 Baso % (Auto) 0.3 Neut # (Auto) 4.88 Lymph # (Auto) 0.87 L [place] # (Auto) 0.41 Eos # (Auto) 0.02 Baso # (Auto) 0.02 Immature Gran # (Auto) 0.01 Sodium 143 Potassium 3.6 Chloride 110 H Carbon Dioxide 29 Anion Gap 4.0 BUN 10 Creatinine 0.68 Est Cr Clr Drug Dosing 55.5 Est GFR ( Amer) 96.4 Est GFR (Non-Af Amer) 83.2 BUN/Creatinine Ratio 14.5 Glucose 111 H Calcium 9.1 Magnesium 2.2 Total Bilirubin 0.8 AST 10 L ALT 25 Alkaline Phosphatase 94 Troponin I < 0.015 Total Protein 6.9 Albumin 3.9 Globulin 3.0 Albumin/Globulin Ratio 1.3 TSH 0.953 Urine Color Urine Appearance Urine pH Ur Specific [place] Urine Protein Urine Glucose (UA) Urine Ketones Urine Blood Urine Nitrite Urine Bilirubin Urine Urobilinogen Ur Leukocyte Esterase Urine WBC (Auto) Urine RBC (Auto) U Hyaline Cast (Auto) U Epithel Cells (Auto) Urine Bacteria (Auto) COVID-19 Eval Order SARS-CoV-2, RNA, NAAT 12/16/20 12/16/20 12/16/20 16:47 16:47 18:03 WBC RBC Hgb Hct MCV MCH MCHC RDW Std Deviation RDW Coeff of Tiana Plt Count MPV Immature Gran % (Auto) Neut % (Auto) Lymph % (Auto) [place] % (Auto) Eos % (Auto) Baso % (Auto) Neut # (Auto) Lymph # (Auto) [place] # (Auto) Eos # (Auto) Baso # (Auto) Immature Gran # (Auto) Sodium Potassium Chloride Carbon Dioxide Anion Gap BUN Creatinine Est Cr Clr Drug Dosing Est GFR ( Amer) Est GFR (Non-Af Amer) BUN/Creatinine Ratio Glucose Calcium Magnesium Total Bilirubin AST ALT Alkaline Phosphatase Troponin I Total Protein Albumin Globulin Albumin/Globulin Ratio TSH Urine Color Yellow Urine Appearance Clear Urine pH 7.0 Ur Specific [place] > 1.045 H Urine Protein Negative Urine Glucose (UA) Negative Urine Ketones Trace H Urine Blood Trace H Urine Nitrite Negative Urine Bilirubin Negative Urine Urobilinogen Negative Ur Leukocyte Esterase Trace H Urine WBC (Auto) 5-10 H Urine RBC (Auto) 0-4 U Hyaline Cast (Auto) 1-5 U Epithel Cells (Auto) 20-30 H Urine Bacteria (Auto) Negative COVID-19 Eval [facility] SARS-CoV-2, RNA, NAAT NEGATIVE Medications Administered Current Inpatient Medications Acetaminophen (Acetaminophen 325 Mg Tab) 650 mg PO Q4H PRN PRN Reason: pain/fever Stop: 01/15/21 21:58 Last Admin: 12/17/20 00:23 Dose: 650 mg Documented by: Al Hydrox/Mg Hydrox/Simethicone (Aluminum/Magnesium Susp 30 Ml Udc) 30 ml PO Q6H PRN PRN Reason: Dyspepsia Stop: 01/15/21 21:58 Aspirin (Aspirin 81 Mg Ectab) 81 mg PO DAILY [facility] Stop: 01/16/21 08:59 Atorvastatin Calcium (Atorvastatin 40 Mg Tab) 40 mg PO DAILY [facility] Stop: 01/16/21 08:59 Buspirone HCl (Buspirone 5 Mg Tab) 10 mg PO TID PRN PRN Reason: anxiety Stop: 01/15/21 21:58 Levothyroxine Sodium (Levothyroxine Sodium 50 Mcg Tablet) 50 mcg PO DAILYBB [facility] Stop: 01/16/21 06:29 Last Admin: 12/17/20 05:52 Dose: 50 mcg Documented by: Magnesium Hydroxide (Magnesium Hydroxide Susp 30 Ml Udc) 30 ml PO Q6H PRN PRN Reason: Constipation Stop: 01/15/21 21:58 Melatonin (Melatonin 3 Mg Tab) 3 mg PO HS PRN PRN Reason: Sleep Stop: 01/15/21 22:05 Naproxen (Naproxen 250 Mg Tab) 250 mg PO BID PRN PRN Reason: Pain Stop: 01/15/21 22:06 Nitroglycerin (Nitroglycerin Sl 0.4 Mg/Tab Tab) 0.4 mg SL Q5M PRN PRN Reason: Chest Pain Stop: 01/15/21 21:58 Pantoprazole Sodium (Pantoprazole 40 Mg Tab) 40 mg PO BID [facility] Stop: 01/15/21 21:58 Last Admin: 12/16/20 22:40 Dose: 40 mg Documented by: Polyethylene Glycol (Polyethylene (Miralax) 17 Gm Pack) 17 gm PO DAILY PRN PRN Reason: Constipation Stop: 01/15/21 21:58 Venlafaxine HCl (Venlafaxine Hcl 50 Mg Tab) 50 mg PO DAILY [facility] Stop: 01/16/21 08:59 Vitamin D (Cholecalciferol 1,000 Units 25 Mcg Tab) 2,000 units PO DAILY [facility] Stop: 01/16/21 08:59 PG Care Time/CCT Total # of Minutes Spent Total Time Spent with Patient: Total time spent is greater than 50% in coordination of care (as documented) at patient's floor/unit and/or counseling patient: Coding Level of Care Code 21191 Subseq Hosp Care Lvl 2 Diagnoses Depression F32.9 Anxiety F41.9 Hyperlipidemia E78.2 Hyperlipidemia type: mixed hyperlipidemia Stented coronary artery Z95.5 Coronary artery disease I25.10 Hypothyroidism E03.9 (1) Hyperlipidemia Hyperlipidemia type: mixed hyperlipidemia Qualified Code(s): E78.2 - Mixed hyperlipidemia
--- NOTE | 2020-12-17 07:40 | Electrocardiogram Report ---
Test Reason : Blood Pressure : / mmHG Vent. Rate : 073 BPM Atrial Rate : 073 BPM P-R Int : 184 ms QRS Dur : 084 ms QT Int : 360 ms P-R-T Axes : 060 065 081 degrees QTc Int : 396 ms Poor data quality, interpretation may be adversely affected Normal sinus rhythm Nonspecific ST abnormality Abnormal ECG When compared with ECG of 21-MAY-2017 15:26, No significant change was found Confirmed by Pedrito Ambriz ([id number]) on 12/17/2020 7:40:34 AM Referred By: Confirmed By:Pedrito Ambriz
[2020-12-17] MEDS: ATORVASTATIN 40 MG TAB PO SCH (08:31)
[2020-12-17] MEDS: ASPIRIN 81 MG ECTAB PO SCH (08:31)
[2020-12-17] MEDS: PANTOprazole 40 MG TAB PO SCH ×2 (08:31→20:45)
[2020-12-17] MEDS: CHOLECALCIFEROL 1,000 UNITS 25 MCG TAB PO SCH (08:31)
[2020-12-17] MEDS ORDERED: VENLAFAXINE HCL 50 MG TAB PO SCH (09:00)
[2020-12-17 09:06] LABS: Creatine Kinase 36 U/L (26-192); Iron 80 mcg/dl (35-150); Transferrin 204 mg/dl (200-360); Transferrin Percent Saturation 28 % (15-50)
[2020-12-17] MEDS: ONDANSETRON 4 MG OD TAB PO PRN ×2 (16:06→23:58)
--- NOTE | 2020-12-17 16:50 | Psychiatric Consultation ---
Date of Consultation December 17, 2020 Impression / Recommendations Impression The patient is a 80yo with several medical concerns to include MCI r/o dementia under the care of neurology failed trial of donepazil and now not benefitting from effexor XR 75mg due to ongoing cognitive sx and worsening anxiety, prompting adjustment to effexor IR 50mg + buspar with ongoing anxiety, and mood concerns that seem to be worsening. It is hard to discern apathy/avolition of dementia from depression given low volition, low interest, low energy, poor concentration. In Ms Squires's case a martinez differentiator seems to be the sense of burden and guilt and believing others would be better without her and passive SI that seem more like depressive episode. She is anxious and stressed. Crying spells are newer. Emotional incontinence can be a sx of FTD but she is lacking the other signs of disi nhibition and no other s/sx of inappropriate emotion. FUrther given that her tearfulness and that it is egosyntonic with her low mood and guilt/burdensomeness fears this is likely anxiety/depression related. Dx: MDD, recurrent, modearte, Dementia by history, ANxiety NOS. Plan: 1. The effexor is not effective or tolerated at higher doses, will recommend taper at this time. 2. Stop buspar to reduce polypharmacy. 3. Start sertraline 25mg/day and if no benefit for mood or anxiety at 4 weeks consider advancing to 50mg dose with caution. (If mood is declining faster could advance sooner) Watch for HERNANDEZ, GI upset, sweating and looser bowels. Discussed this with Ms Squires and she agrees she is willing for the change and denies questions or concerns. 4. Please assure she has neurology f/u to allow Dr Farmer to determine if further medication for dementia/cognition are appropriate. 5. Patient does have passive SI, she denies active intention or plan, she has not shown acts of furtherance, she has no h/o SA. Outpatient care is least restrictive and most appropriate setting for care at this time once medically cleared. Thank you for allowing us to participate in Ms Squires's care. Please call with further questions or concerns. Psych History Identifying Data The patient is a 80-year-old female with past medical history of CAD w/ stent, HTN, HLD, anxiety, and mild cognitive impairment who presented with complaints of feeling weak & tired for several weeks. Internal medicine is concerned that this may be related to depression, although also noting patient is being evaluated by neurology for dementia and r/o FTD with avolition/apathey and emotional incontinence may be on the differential. Psychiatry consulted for evaluation and recommendations for depression. Chief Complaint "I don't do anything....I must be depressed". History of Present Illness The patient is a 80yo MWF with a history of remote treatment with effexor "because my son was ." She has difficulty recalling the sx she was having at the time. When asked about sx of depression and anxiety she notes "well it must be that." She denies having been on other anti-dperessants or antianxiety medications in the past. It appears per available [facility] notes that PCM Dr Gonzalez began to evaluate the patient for cognitive impairment followed by visit to Dr Farmer in Neurology. Fall 2019 a trial of donepazil was not tolerated alongside effexor 37.5mg, and at patient's 10/[address] Farmer rather than try a new AchE Inhibitor or related dementia slowing med he incresed effexor XR from 37.5mg to 75mg. THere is note in the record that higher doses had not previously been tolerated but patient does not recall side effects from the past. She was doing poorly with increased anxiety sx at her 11/26/[address] Gonzalez and so effexor was changed from XR 75mg to 50mg (presumably immediate release version) and he added buspar 5-10 mg q8h for anxiety. Patient states she is having increased crying spell, decreased appetite, not doing things she enjoys, she reports low volition, and "too much" in bed and is not sure why. 'I don't want to be a burden to others' feels worsening cocnetration, appetite, low energy, slowed psychomotor speed. She has feeling that others would be better off "I I wasn't around. it would make things better....I wound't do it because of my beleif in God" SHe denies suicidal plans, no h/o Suicidal attempts. She does feel anxious "I keep it to myself." Worries and feels physically anxious, denies overt panic attacks. SHe denies Auditory hallucinations. SHe does at times see people in a room who are not there, but is able to reality test that if her is upstairs this is not real. She denies actively having visual hallucinations here at the hospital. She denies s/sx of OCD or PTSD sx. Denies s/sx of bipolar disorder. No evidence from patient or available collateral that patient is disinhibited or inappropriate in her behaviors. Pt [facility]. Attended [employer], and then to [employer]. worked as a Notifoician, was in the [employer]. Good relationship with kids and with many grandkids. LIves with in in [place]. Richelle is Oriental Orthodox, no legal concerns, denies P/E/S/V abuse or trauma. Allergies Allergy/AdvReac Type Severity Reaction Status Date / Time ramipril [From Altace] Allergy Mild Cough Verified 12/16/20 15:59 adhesive Allergy Unknown SOME TAPE Verified 12/16/20 15:59 RASH PAPER OK codeine Allergy Unknown UNKNOWN Verified 12/16/20 15:59 Home Medications Medication Instructions Recorded Confirmed Type aspirin 81 mg tablet,delayed 81 mg PO DAILY #90 tab 12/02/19 12/16/20 Rx release atorvastatin 40 mg tablet 40 mg PO DAILY #90 tab 12/02/19 12/16/20 Rx acetaminophen 500 mg capsule 500 mg PO Q6H PRN 01/18/20 12/16/20 History nitroglycerin 0.4 mg sublingual 0.4 mg SL Q5M PRN 01/18/20 12/16/20 History tablet cholecalciferol (vitamin D3) 50 2,000 units PO DAILY #30 tab 01/19/20 12/16/20 Rx mcg (2,000 unit) tablet pantoprazole 40 mg tablet,delayed 40 mg PO BID #180 tab 05/06/20 12/16/20 Rx release levothyroxine 50 mcg tablet 50 mcg PO DAILY #90 tab 10/25/20 12/16/20 Rx buspirone 10 mg tablet See Rx Instructions PO TID PRN #60 11/28/20 12/16/20 Rx tab melatonin 3 mg capsule 3 mg PO HS PRN 11/28/20 12/16/20 History naproxen sodium 220 mg tablet 220 mg PO BID PRN 11/28/20 12/16/20 History venlafaxine 50 mg tablet 50 mg PO DAILY #30 tab 11/28/20 12/16/20 Rx Personal History Beliefs That Will Affect Care: None Patient History Medical History (Updated 12/16/20 @ 23:04 by Brittney Muñiz MD) Anemia Anemia Chest pain Chest pain Chest tightness or pressure (03/31/14) Cognitive impairment Hyperlipidemia Hypertension Low back pain Restless leg syndrome Salmonella Surgical History S/P cholecystectomy S/P hysterectomy Family History Aunt Breast cancer Grandmother Breast cancer Mother Colorectal cancer Ovarian cancer Gallbladder disease Father Prostate cancer Diabetes Denies family history of Myocardial infarction Social History Smoking Status: Never smoker Cigarettes Per Day: maybe 2 a week; Second Hand Exposure: No; Hx Alcohol Use: No Hx Substance Use: No Preferred Language: Romansh Communication Ability: Effective Visual Impairment: No Limitations Hearing Ability: Normal Oracle Forms Developer Required: No Beliefs That Will Affect Care: None marital status: Current Living Situation: Spouse current occupational status: other current occupation: homemaker Other Information That Helps Us Care for You: No Feels Safe at Home: Yes Safety Concerns: Feels Safe At This Time Childhood Exposure to Second-Hand Smoke: Yes caffeine: No during the past year weight has: remained stable Dental Care, Regularly: Yes Physical Activity Frequency: Daily Seatbelt Use: always Sunscreen Use: Yes Assistive Devices: None Physical Exam Psychiatric: Orientation: alert, oriented to person, oriented to place and cooperative Apperance: appropriately groomed and appeared stated age Eye Contact: good eye contact Motor Behavior: no abnormal motor movements Speech: normal rate/rhythm/volume of speech appropriate stable, non-labile affect that is subdued but socially pleasant Mood: + anxious mood "I must be depressed because I don't do anything" Thought Process: goal directed thought process feeling like a burden, anxious and stressed about this hostpialization Suicidal Thoughts: denies suicidal plan and denies suicidal intent passive SI Homicidal Thoughts: denies homicidal thoughts Hallucinations: no auditory hallucinations and no visual hallucinations limited memory does not recall details of her medications well, but does note they were changed in the last few months and ineffective Estimated Intelligence: average estimated intelligence Insight: + fair insight Judgement: + fair judgement Vital Signs (Past 24 Hours): Last Vital Signs Temp 37.1 C 12/17/20 15:49 Pulse 69 12/17/20 15:49 Resp 18 12/17/20 15:49 BP 135/74 12/17/20 15:49 Pulse Ox 93 12/17/20 15:49 Results & Data (PS[facility]) Medications Administered Acetaminophen (Acetaminophen 325 Mg Tab) 650 mg PO Q4H PRN PRN Reason: pain/fever Stop: 01/15/21 21:58 Last Admin: 12/17/20 00:23 Dose: 650 mg Documented by: [id number] Aspirin (Aspirin 81 Mg Ectab) 81 mg PO DAILY [facility] Stop: 01/16/21 08:59 Last Admin: 12/17/20 08:31 Dose: 81 mg Documented by: [id number] Atorvastatin Calcium (Atorvastatin 40 Mg Tab) 40 mg PO DAILY [facility] Stop: 01/16/21 08:59 Last Admin: 12/17/20 08:31 Dose: 40 mg Documented by: [id number] Buspirone HCl (Buspirone 5 Mg Tab) 10 mg PO TID PRN PRN Reason: anxiety Stop: 01/15/21 21:58 Last Admin: 12/17/20 08:31 Dose: 10 mg Documented by: [id number] Levothyroxine Sodium (Levothyroxine Sodium 50 Mcg Tablet) 50 mcg PO DAILYBB [facility] Stop: 01/16/21 06:29 Last Admin: 12/17/20 05:52 Dose: 50 mcg Documented by: [id number] Ondansetron HCl (Ondansetron 4 Mg Od Tab) 4 mg PO Q6H PRN PRN Reason: Nausea Stop: 01/16/21 15:49 Last Admin: 12/17/20 16:06 Dose: 4 mg Documented by: [id number] Pantoprazole Sodium (Pantoprazole 40 Mg Tab) 40 mg PO BID [facility] Stop: 01/15/21 21:58 Last Admin: 12/17/20 08:31 Dose: 40 mg Documented by: [id number] Admin: 12/16/20 22:40 Dose: 40 mg Documented by: [id number] Venlafaxine HCl (Venlafaxine Hcl 50 Mg Tab) 50 mg PO DAILY [facility] Stop: 01/16/21 08:59 Last Admin: 12/17/20 08:31 Dose: 50 mg Documented by: [id number] Vitamin D (Cholecalciferol 1,000 Units 25 Mcg Tab) 2,000 units PO DAILY [facility] Stop: 01/16/21 08:59 Last Admin: 12/17/20 08:31 Dose: 2,000 units Documented by: [id number] Coding Level of Care Code 44990 [facility] Intl Hosp Care Lvl 3
[2020-12-18] MEDS: LEVOTHYROXINE SODIUM 50 MCG TABLET PO SCH (06:05)
[2020-12-18] MEDS: PANTOprazole 40 MG TAB PO SCH ×2 (09:10→20:17)
[2020-12-18] MEDS: SERTRALINE HCL 50 MG TABLET PO SCH (09:10)
[2020-12-18] MEDS: VENLAFAXINE HCL 37.5 MG TAB PO SCH (09:10)
[2020-12-18] MEDS: ASPIRIN 81 MG ECTAB PO SCH (09:11)
[2020-12-18] MEDS: ATORVASTATIN 40 MG TAB PO SCH (09:11)
[2020-12-18] MEDS: CHOLECALCIFEROL 1,000 UNITS 25 MCG TAB PO SCH (09:11)
[2020-12-18] MEDS: ONDANSETRON 4 MG OD TAB PO PRN ×2 (09:13→15:48)
[2020-12-18 10:03] LABS: Folate (Folic Acid) 16.8 ng/ml (>5.38)
[2020-12-18 10:56] LABS: Lyme Ab IgG w/WB Rflx Negative (Negative); Lyme Ab IgM w/WB Rflx Negative (Negative)
--- NOTE | 2020-12-18 14:57 | Hospitalist Progress Note ---
Date of Service December 18, 2020 Assessment & Plan (1) Depression: 1. Depression/anxiety Review of outpatient notes show a most recent mini-mental status exam of 30, completed in the fall of 2019 Mild cognitive impairment noted by Neurology and her most recent outpatient evaluation October 2020 No obvious cause of infection, urine culture is currently pending. Psych recs for gradual taper of effexor D/C buspar Start sertraline 25mg and increase to 50mg if not improving in 4 weeks 2. CAD Patient has history of coronary stent Continue aspirin 81 mg Continue atorvastatin 40 mg daily 3. Hyperlipidemia continue atorvastatin 4. Hypothyroidism continue current medications Normal TSH 5. Hiatal hernia Continue pantoprazole FENGI: Heart healthy DVT ppx: ASA 81mg PO daily Dispo: Admit for observation to med/surg Code Status: Conditional Code (No chest compressions, no defibrillation; yes to invasive airway and ventilation) (2) Anxiety: (3) Hyperlipidemia: (4) Stented coronary artery: (5) Coronary artery disease: (6) Hypothyroidism: (7) Weakness: CT head: neg for acute CBC, PRP, TSH WNL Trop neg x1 Iron panel WNL (pt has hx of IV iron infusions) UA, CXR neg for infections Lyme neg B12 is borderline low at 356 with elevated MCV on labs for admission and her last set of oupt labs Start B12 injections daily x5 on 12/18, then monthly with PO B complex PT/OT feels pt is stable for home, pt is not comfortable with home at this time Admission and Anticipated Discharge Date Admission Date: December 16, 2020 Subjective 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 She is still weak and feels she needs a lot of support with ambulation. She has felt nauseated on and off throughout the AM. She was able to eat breakfast though. Pt denies fever, SOB, chest pain, abd pain, c/d, LE pain or swelling. Tolerating PO without issue. Review of Systems Review of Systems: Pertinent positives and negatives reviewed in HPI--all others negative Physical Exam Constitutional: WD/WN, vitals as above Eyes: normal visual go by confrontation and + anicteric sclerae Neck: normal visual inspection and trachea midline Respiratory: normal respiratory effort, lungs clear to auscultation Cardiovascular: Rate/Rhythm: regular rate and regular rhythm Gastrointestinal (Abdomen): Inspection/Auscultation: abdomen not distended Percussion/Palpation: abdomen soft; abdomen nontender Musculoskeletal: Head/Neck/Chest: normocephalic and head atraumatic negative for edema, peripheral pulses intact Skin: no rashes, warm and dry Neurologic: awake; not confused Speech / Cognition: normal speech Psychiatric: A+Ox3, euthymic affect Results & Data Results & Data ([facility]) Vital Signs (Past 12 Hours) Vital Signs Temp Pulse Resp BP Pulse Ox 12/18/20 07:22 36.8 C 67 16 112/64 92 PG Care Time/CCT Total # of Minutes Spent Total Time Spent with Patient: Total time spent is greater than 50% in coordination of care (as documented) at patient's floor/unit and/or counseling patient: Coding Level of Care Code 79220 Subseq Obs Care Lvl 3 Diagnoses Depression F32.9 Anxiety F41.9 Hyperlipidemia E78.2 Hyperlipidemia type: mixed hyperlipidemia Stented coronary artery Z95.5 Coronary artery disease I25.10 Hypothyroidism E03.9 Weakness R53.1 (1) Hyperlipidemia Hyperlipidemia type: mixed hyperlipidemia Qualified Code(s): E78.2 - Mixed hyperlipidemia
[2020-12-18] MEDS: CYANOCOBALAMIN 1000 MCG/ML VIAL IM SCH (15:10)
[2020-12-18] MEDS: ACETAMINOPHEN 325 MG TAB PO PRN (20:16)
[2020-12-19] MEDS: ONDANSETRON 4 MG OD TAB PO PRN (05:51)
[2020-12-19] MEDS: LEVOTHYROXINE SODIUM 50 MCG TABLET PO SCH (05:52)
[2020-12-19] MEDS: SERTRALINE HCL 50 MG TABLET PO SCH (08:39)
[2020-12-19] MEDS: VENLAFAXINE HCL 37.5 MG TAB PO SCH (08:40)
[2020-12-19] MEDS: PANTOprazole 40 MG TAB PO SCH (08:40)
[2020-12-19] MEDS: CHOLECALCIFEROL 1,000 UNITS 25 MCG TAB PO SCH (08:40)
[2020-12-19] MEDS: ASPIRIN 81 MG ECTAB PO SCH (08:40)
[2020-12-19] MEDS: ATORVASTATIN 40 MG TAB PO SCH (08:40)
[2020-12-19] MEDS: CYANOCOBALAMIN 1000 MCG/ML VIAL IM SCH (08:41)
--- NOTE | 2020-12-19 14:31 | Discharge Summary ---
Date of Service December 19, 2020 Admission HPI Per Admitting Provider Terri Squires is a 80-year-old female with past medical history of CAD w/ stent, HTN, HLD, anxiety, and mild cognitive impairment who presented with complaints of feeling weak & tired for several weeks. She also states that she has been very "weepy"--crying a lot but doesn't know why. When asked if she feels she is depressed she states that she has no reason to be sad, as she has family and grandchildren that visit her, which makes her happy. Despite this, she says, she cries a lot and just feels like she does not want to be a burden on her family. She mentions that she used to take care of everyone around her but now feels they need to take care of her and that makes her sad and anxious. She also expressed that sometimes she feels like "it would be better if I was gone". When I asked her if she's ever seen a psychiatrist she mentions that she has not liked the idea in the past because she does not want doctors to think she does not "have control" of herself. Alvarado said that when asked how her mood is doing she has told doctors that she is doing well because she doesn't want them to think there's something wrong with her. Her [id number], Ariana Squires states that Terri used to be very active and that she would drive a golf cart around her community, visit her daughter who lives up the street, and walk around her neighborhood for exercise. However, since about Harvey she has been crying a lot, less active, not eating much. Concerns for this were addressed at an outpatient visit with her PCP on 11/26/20. Decreased Effecor from 75mg to 50mg and started buspirone 5-10mg q8h prn for anxiety. They discussed referral to psychiatry but unclear if she was referred. Has not seen psychiatrist before. Patient's only other symptoms that she mentions on ROS are epigastric abdominal discomfort, especially notable when she eats spicy food, and some constipation for the past two days. She has a history remarkable for large hiatal hernia seen on imaging. Denies fever, chills, n/v, diarrhea, bloody stools, food getting stuck in esophagus, cough, SOB, CP, palp, neurologic deficits. Was treated for UTI from 11/29-12/04 with nitrofurantoin due to urinary frequency/urgency. She denies dysuria, frequency or urgency today. In ED, CBC & BMP were unremarkable. She had a negative Head CT. CXR was only remarkable for large hiatal hernia. Abd/Pelvic CT was remarkable for hiatal hernia as well as some constipation. UA with trace leukocyte esterase, trace ketones, trace blood, 5-10 WBC, negative for nitrates. Principal Diagnosis Major depressive disorder, recurrent Anxiety disorder, NOS Discharge Exam Constitutional WD/WN, vitals as above Eyes + anicteric sclerae Neck trachea midline, no thyromegaly Respiratory normal respiratory effort, lungs clear to auscultation Cardiovascular RRR, no murmur, no edema Chest (Breasts) Chest: normal inspection of chest Gastrointestinal (Abdomen) normal bowel sounds, soft, nontender, no hepatosplenomegaly Musculoskeletal Extremities: extremities normal to inspection; no cyanosis and no clubbing Skin no rashes, warm and dry Neurologic moves all extremities and awake; no focal motor deficits Psychiatric Orientation: alert, oriented x 3 and cooperative Affect: + depressed affect Mood: + depressed mood Lymphatic no lymphedema Discharge Data Allergies Allergy/AdvReac Type Severity Reaction Status Date / Time ramipril [From Altace] Allergy Mild Cough Verified 12/16/20 15:59 adhesive Allergy Unknown SOME TAPE Verified 12/16/20 15:59 RASH PAPER OK codeine Allergy Unknown UNKNOWN Verified 12/16/20 15:59 Consultations 12/16/20 18:27 ED Decision to Admit Stat 12/16/20 21:59 Consult Psychiatry Routine Consult Psychiatry Stat 12/19/20 14:26 Consult Case Management - Discharge Planning Routine Ordered Studies 12/16/20 14:25 CT abd pelvis IV con only Stat 12/16/20 15:23 CT head/brain wo con Stat Hospital Course (1) Depression: 1. Depression/anxiety Review of outpatient notes show a most recent mini-mental status exam of , completed in the fall of 2019 Mild cognitive impairment noted by Neurology and her most recent outpatient evaluation October 2020 No obvious cause of infection, urine culture is currently pending. Psych recs for gradual taper of effexor -will give 37.5mg daily x 3 more days then STOP D/C buspar Start sertraline 25mg and increase to 50mg if not improving in 4 weeks B12 level bordelrine low--> gave IM B12 and continue po B12 upon dc 2. CAD Patient has history of coronary stent Continue aspirin 81 mg Continue atorvastatin 40 mg daily 3. Hyperlipidemia continue atorvastatin 4. Hypothyroidism continue current medications Normal TSH 5. Hiatal hernia Continue pantoprazole FENGI: Heart healthy DVT ppx: ASA 81mg PO daily Dispo: stable for dc to home Code Status: Conditional Code (No chest compressions, no defibrillation; yes to invasive airway and ventilation) (2) Anxiety: (3) Hyperlipidemia: (4) Stented coronary artery: (5) Coronary artery disease: (6) Hypothyroidism: (7) Weakness: CT head: neg for acute CBC, PRP, TSH WNL Trop neg x1 Iron panel WNL (pt has hx of IV iron infusions) UA, CXR neg for infections Lyme neg B12 is borderline low at 356 with elevated MCV on labs for admission and her last set of oupt labs Start B12 injections daily x5 on 12/18, then monthly with PO B complex PT/OT feels pt is stable for home, pt is not comfortable with home at this time Total Time Total Time Spent Total Time Spent (In Minutes): 35 min Total Time Includes: Examination of the Patient, Discharge Planning, Medication Reconciliation and Communication With Other Providers (Psychiatric nurse liaison) Discharge Plan Discharge Items Patient Disposition: Home - Self-Care Reason For Visit: PERSONALITY CHANGES Discharge Diagnosis: Major depressive disorder, recurrent, Anxiety Disorder Condition on Discharge: Fair Activity: Resume your previous activity Non-emergency contact: Primary Care Provider and Neurologist Call non-emergency contact if: you have any medication questions and your symptoms worsen Follow-up/Referrals: Julio Hyman MD [Primary Care Provider] - (Follow up within 1-2 weeks) Hudson Farmer MD [Physician] - (Follow up within 1 month for cognitive impairment ) Diet: Heart Healthy Addtl Attending Provider Instructions: You were seen in the hospital by Psychiatry for your worsening mood and your medications were changed as follows: 1. STOP Buspar 2. Started sertraline 25mg once daily 3. Taper down Effexor 37.5mg once daily x 3 more days, then STOP Please follow up with your PCP within 1-2 weeks for your depression. Your Vitamin B12 levels were borderline low and you were given IM B12 injections. Please continue taking B12 1000 mcg by mouth once daily. Follow up with Neurology for your cognitive impairment. Pending Studies at Discharge: No Stand-Alone Forms: My [facility] Medications and DC Order Prescriptions: New venlafaxine 37.5 mg Tablet 37.5 mg PO DAILY@0800 Qty: 3 RF: 0 sertraline 25 mg tablet 25 mg PO DAILY Qty: 30 RF: 0 cyanocobalamin (vitamin B-12) 1,000 mcg capsule 1,000 mcg PO DAILY Qty: 30 RF: 0 Continued cholecalciferol (vitamin D3) 50 mcg (2,000 unit) tablet 2,000 units PO DAILY Qty: 30 RF: 0 pantoprazole 40 mg tablet,delayed release (DR/EC) 40 mg PO BID Qty: 180 RF: 3 levothyroxine 50 mcg tablet 50 mcg PO DAILY Qty: 90 RF: 1 atorvastatin 40 mg tablet 40 mg PO DAILY Qty: 90 RF: 1 aspirin 81 mg tablet,delayed release (DR/EC) 81 mg PO DAILY Qty: 90 RF: 1 nitroglycerin 0.4 mg tablet, sublingual 0.4 mg SL Q5M PRN (Reason: cp) RF: 0 acetaminophen 500 mg capsule 500 mg PO Q6H PRN (Reason: Pain) RF: 0 melatonin 3 mg capsule 3 mg PO HS PRN (Reason: Sleep) RF: 0 naproxen sodium [Aleve] 220 mg tablet 220 mg PO BID PRN (Reason: Pain) RF: 0 Discontinued buspirone 10 mg tablet See Rx Instructions PO TID PRN (Reason: anxiety) Qty: 60 RF: 2 venlafaxine 50 mg tablet 50 mg PO DAILY Qty: 30 RF: 2 Discharge Orders: Discharge Order (Routine); Ordered 12/19/20 Ordered By: Charley Norris Admission Data Admit Date/Time: 12/16/20 19:39 Attending Provider: Charley Norris Admit Provider: Carlo Drew Primary Care Provider: Julio Hyman Other Providers: Chiquis Brewer ; Hudson Amato Coding Level of Care Code D/C Day Management <30 mins Diagnoses Depression F32.9 Anxiety F41.9 Hyperlipidemia E78.2 Hyperlipidemia type: mixed hyperlipidemia Stented coronary artery Z95.5 Coronary artery disease I25.10 Hypothyroidism E03.9 Weakness R53.1
--- NOTE | 2020-12-20 12:51 | Billing Data ---
Date of Service December 16, 2020 Coding Level of Care Code 07937 OBS Care - Level 2
== END 2020-12-19 15:55 | disposition home or self-care (01) ==
LOC: ED 13:31 → 3N 13:31 → SUATTDRO 19:39 → 3N 20:52
DX: F32.9 Major depressive disorder, single episode, unspecified; Z88.8 Allergy status to other drugs, medicaments and biological substances; K44.9 Diaphragmatic hernia without obstruction or gangrene; E78.2 Mixed hyperlipidemia; Z79.82 Long term (current) use of aspirin; Z88.5 Allergy status to narcotic agent; E03.9 Hypothyroidism, unspecified; I25.10 Atherosclerotic heart disease of native coronary artery without angina pectoris; Z79.899 Other long term (current) drug therapy; F41.9 Anxiety disorder, unspecified